=== PATIENT | female | born 1990 | race Hispanic/Latino ===

== ENCOUNTER 2016-08-27 12:28 | Outpatient (CLI) | payer SELFPAY ==
[2016-08-27 12:48] VITALS: BP 109/46
[2016-08-27] MEDS ORDERED: LACTATED RINGERS 500 ML IV ONE (14:49)
--- NOTE | 2016-08-28 09:17 | Ultrasound Report ---
OB ULTRASOUND GREATER THAN 14 WEEKS INDICATION: Viability, MAGALIE. COMPARISON: None similar. TECHNIQUE: Transabdominal grayscale ultrasound with Doppler interrogation. Gestation: [place] Position: Cephalic Amniotic Fluid: WNL (7-24 cm) NOY = 13.2 cm Placenta: Anterior Placental Grade: I Heart Rate: 151 BPM Cervical length: 3.2 cm (Normal > 3 cm) NEUROANATOMY VISUALIZED: Cisterna Magnum Cerebellum Lateral Ventricle ANATOMY VISUALIZED: Stomach Kidneys Bladder Diaphragm 4 Chamber Heart Heart 3 Vessel Cord SPINE VISUALIZED: Longitudinal Transverse The following are not demonstrated due to maternal body habitus or lie: Abd. Cord Insert, Choroid Plexus BPD: 7.67 cm = 30 w 5 d HC: 29.48 cm = 32 w 4 d AC: 29.3 to cm = 33 w 2 d FL: 6.36 cm = 32 w 6 d HC/AC Ratio: 1.01 Cephalic Index: 72.8 LMP uncertain Estimated Weight: 2068 grams US Gest. Age = 32 w 3 d EDC: 10/19/2016 CONCLUSION: Single, viable intrauterine gestation with ultrasound estimated age of 32 weeks and 3 days and EDC of 10/19/2016, currently in cephalic lie with details, as above. Thank you for the opportunity to participate in this patient's care.
== END 2016-08-27 15:03 | disposition home or self-care (01) ==
LOC: TRG 12:28
PROVIDERS: ATTEND Obstetrics & Gynecology
DX: O47.03 False labor before 37 completed weeks of gestation, third trimester (principal); O99.333 Smoking (tobacco) complicating pregnancy, third trimester; Z3A.32 32 weeks gestation of pregnancy
CPT/HCPCS: 59025; 76805

== ENCOUNTER 2016-09-20 05:52 | Outpatient (CLI) | payer SELFPAY ==
[2016-09-20] MEDS ORDERED: LACTATED RINGERS 1,000 ML ONE ×3 (06:28→21:08)
--- NOTE | 2016-09-20 08:14 | Ultrasound Report ---
ULTRASOUND BIOPHYSICAL PROFILE: History: well-being, vaginal spotting Technique: Transabdominal ultrasound with Doppler interrogation. 2 - breathing movements 2 - movements 2 - posture and tone 2 - Qualitative amniotic fluid volume 8 - TOTAL SCORE OF POSSIBLE 8 Heart Rate (bpm) 149
--- NOTE | 2016-09-20 08:15 | Ultrasound Report ---
ULTRASOUND OB LIMITED History: well being, vaginal spotting Technique: Transabdominal ultrasound with Doppler interrogation. Gestation: Single Position: Cephalic Amniotic Fluid: Normal NOY = 8.6 cm Placenta: Anterior Placental Grade: 1 No evidence for abruption. Heart Rate: 148 BPM Cervical length: Obscured (Normal > 3 cm)
[2016-09-20 08:17] LABS: Bacteria,Urine 1+ /HPF (Negative); Bilirubin,Urine NEG (Negative); Blood,Urine NEG (Negative); Ketones,Urine NEG (Negative); Leukocyte Esterase,Urine NEG (Negative); Nitrite,Urine NEG (Negative); Protein,Urine <15 mg/dL mg/dL (Negative); Urobilinogen,Urine < 2.0 mg/dL (<2.0)
[2016-09-20 08:38] LABS: WBC,Urine < 1.0 /HPF (0.0-6.0)
[2016-09-20 09:18] LABS: Urine Drugs of Abuse Note Disclamer
[2016-09-20 11:00] LABS: INR 0.92 (0.87-1.13)
[2016-09-20 11:01] LABS: Partial Thromboplastin Time 26.9 Sec. (24.2-36.6)
--- NOTE | 2016-09-20 11:24 | Ultrasound Report ---
OB ULTRASOUND History: No care. Technique: Transabdominal ultrasound with Doppler interrogation. Gestation: Single Position: Cephalic Amniotic Fluid: Normal NOY = 9.8 cm Placenta: Anterior Placental Grade: 2 Heart Rate: 161 BPM Cervical length: Obscured cm (Normal > 3 cm) NEUROANATOMY VISUALIZED: ANATOMY VISUALIZED: Stomach Kidneys Bladder Diaphragm SPINE VISUALIZED: Limited spine due to position The following are not demonstrated due to maternal body habitus or lie: Spine, 4 chamber heart, abdominal cord insertion, neuroanatomy, cervix, 3 vessel cord. BPD: 7.8 cm = 31 w 3 d HC: 30.6 cm = 34 w 0 d AC: 31.1 cm = 35 w 0 d FL: 6.9 cm = 35 w 2 d HC/AC Ratio: 0.98 Cephalic Index: 72.4 Estimated Weight: 2470 grams LMP: 01/13/16 Clinical age = 35 w 6 d EDC: 10/19/16 US Gest. Age = 34 w 0 d EDC: 11/01/16
[2016-09-20] MEDS ORDERED: LACTATED RINGERS 1,000 ML IV ONE (13:00)
[2016-09-20] MEDS ORDERED: TYLENOL PO PRN (18:24)
--- NOTE | 2016-09-20 18:24 | History and Physical Report ---
History of Present Illness Date of examination: 09/20/16 Date of admission: 09/20/16 Chief complaint: vaginal bleeding at 35 weeks History of present illness: This is a 26 yo G P at 35+ weeks without care. She stated that she moved furniture this am and noticed bleeding. Upon evaluation she passed a clot size of orange. She denies any contractions. some back pain. No other complaints. Patint without care secondary to insurance but is planning to become part of [employer] Past History Past Medical History: no pertinent history Past Surgical History: no surgical history Family/Genetic History: none Social history: no significant social history, single, smoking - Obstetrical History Expected Date of Delivery: 10/19/16 Actual Gestation: 35 Week(s) 6 Day(s) : 3 Para: 2 Hx # Term Pregnancies: 2 Number of Pregnancies: 0 Spontaneous Abortions: 0 Induced : 0 Number of Living Children: 2 Medications and Allergies Allergies Allergy/AdvReac Type Severity Reaction Status Date / Time codeine AdvReac Intermediate Itching Verified 05/10/13 02:46 Penicillins AdvReac Intermediate Itching Verified 05/10/13 02:46 Home Medications Medication Instructions Recorded Confirmed Last Taken Type Ferrous Sulfate [Feosol 325 MG tab] 325 mg PO BID #60 tablet 05/11/13 Unknown Rx Ibuprofen [Motrin 600 MG tab] 800 mg PO Q8H PRN #30 tablet 05/11/13 Unknown Rx Vit-Fe Fumar-FA [ 1 each PO QDAY #30 tablet 05/11/13 Unknown Rx Vitamin] Ibuprofen [Motrin 600 MG tab] 600 mg PO Q6H #30 tablet 11/19/15 Unknown Rx Vit-Fe Fumar-FA [ 1 each PO QDAY #30 tablet 11/19/15 Unknown Rx Vitamin] ALBUTEROL Inhaler 09/20/16 08/21/16 History Adderall 09/20/16 09/17/16 History NexIUM 09/20/16 09/19/16 History Tums 09/20/16 Unknown History Tylenol Pm Ex-Strength Caplet 09/20/16 09/19/16 18:30 History Review of Systems All systems: negative Genitourinary: vaginal bleeding - Vital Signs Vital signs: Vital Signs Pulse Pulse Ox 102 H 99 09/20/16 06:04 09/20/16 06:04 Temp Pulse Resp BP Pulse Ox 97.9 F 100 H 22 100/72 97 09/20/16 16:15 09/20/16 16:15 09/20/16 16:15 09/20/16 16:15 09/20/16 06:25 - Physical Exam Breasts: Positive: deferred Cardiovascular: Regular rate, Normal S1 Lungs: Positive: Clear to auscultation, Normal air movement Abdomen: Positive: normal appearance, soft, normal bowel sounds. Negative: distention, tenderness Vagina: Positive: normal moisture Cervix: Negative: lesion Uterus: Positive: normal size Extremities: Positive: normal Deep Tendon Reflex Grade: Normal +2 - Obstetrical FHR: category 1 Uterine Contraction Monitor Mode: External Results Abnormal lab results 09/20/16 Range/Units 06:15 Ur Specific [place] 1.002 L (1.003-1.030) All other labs normal. Ultrasound: report reviewed Assessment and Plan A IUP 35+ weeks Vaginal bleeding P continuous monitoring pad count labs cbc, type and screen, drug screen MFM consult Bed rest with bathroom privileges Close monitor US
--- NOTE | 2016-09-20 19:06 | Consultation ---
History of Present Illness Consult date: 09/20/16 Requesting physician: TY MUNOZ Reason for consult: other (vaginal bleeding) History of present illness: HISTORY OF PRESENT ILLNESS: 26 y/o at 35 weeks gestation based on an MAGALIE of 10/19/13 who presented with vaginal bleeding and low abdominal pain following trauma to the abdomen (while moving). Patient has had no previous care. Her most recent NOY was 9.8 cm. She has no ongoing bleeding. She DENIES ongoing contractions. OB History * 2014: at term. BW: 5 pounds 4 oz. * 2016: at term. BW: 7 pounds 7 oz. * See H&P RECENT ULTRASONOGRAPHY: * See results in patients chart * assessment: Category 1 Tracing. * EFW: 2470 FHR: 161AFI: 9.8 cm * BPP: 10/24 Past History Past Medical History: no pertinent history Past Surgical History: no surgical history Family/Genetic History: none - Obstetrical History : 3 Medications and Allergies Allergies Allergy/AdvReac Type Severity Reaction Status Date / Time codeine AdvReac Intermediate Itching Verified 05/10/13 02:46 Penicillins AdvReac Intermediate Itching Verified 05/10/13 02:46 Home Medications Medication Instructions Recorded Confirmed Last Taken Type Ferrous Sulfate [Feosol 325 MG tab] 325 mg PO BID #60 tablet 05/11/13 Unknown Rx Ibuprofen [Motrin 600 MG tab] 800 mg PO Q8H PRN #30 tablet 05/11/13 Unknown Rx Vit-Fe Fumar-FA [ 1 each PO QDAY #30 tablet 05/11/13 Unknown Rx Vitamin] Ibuprofen [Motrin 600 MG tab] 600 mg PO Q6H #30 tablet 11/19/15 Unknown Rx Vit-Fe Fumar-FA [ 1 each PO QDAY #30 tablet 11/19/15 Unknown Rx Vitamin] ALBUTEROL Inhaler 09/20/16 08/21/16 History Adderall 09/20/16 09/17/16 History NexIUM 09/20/16 09/19/16 History Tums 09/20/16 Unknown History Tylenol Pm Ex-Strength Caplet 09/20/16 09/19/16 18:30 History Active Meds: Active Medications Acetaminophen (Tylenol) 1,000 mg PO Q6H PRN PRN Reason: Pain, Mild (1-3) Last Admin: 09/20/16 18:39 Dose: 1,000 mg - Vital Signs Vital signs: Vital Signs Pulse Pulse Ox 102 H 99 09/20/16 06:04 09/20/16 06:04 Temp Pulse Resp BP Pulse Ox 97.9 F 100 H 22 100/72 97 09/20/16 16:15 09/20/16 16:15 09/20/16 16:15 09/20/16 16:15 09/20/16 06:25 Results Abnormal lab results 09/20/16 Range/Units 06:15 Ur Specific [place] 1.002 L (1.003-1.030) All other labs normal. Assessment and Plan ADMISSION LAB TESTS: * See Details in patients chart ASSESSMENT * IUP at 35 weeks gestation. * Transient vaginal bleeding. * No care. * Consider discharge when stable. SUGGESTED MANAGEMENT PLAN * Continued admission * At this gestational age we would NOT recommend steroids * Obtain a addiction social worker consult due to no care. * Deliver for indications. * Consider discharge home if stable in 24 hours. * Follow-up with [facility] next week. * [facility] to follow Thank you for allowing us to participate in the care of this patient. We look forward to the opportunity to assist in her continued management. If you have any questions, we may be reached at [phone].
[2016-09-20 20:05] LABS: Basophils % (Auto) 0.4 % (0.0-1.8); Eosinophils % (Auto) 0.6 % (0.0-4.3); Hematocrit 32.8 % (30.3-42.9); Hemoglobin 10.6 gm/dl (10.1-14.3); Mean Corpuscular HGB Conc 32 % (30-34); Mean Corpuscular Volume 80 fl (79-97); Platelet Count 393 K/mm3 (140-440); Red Blood Count 4.13 M/mm3 (3.65-5.03); Red Cell Distribution Width 17.5 % (13.2-15.2); White Blood Count 10.2 K/mm3 (4.5-11.0)
[2016-09-20 20:15] LABS: Mean Corpuscular Hemoglobin 26 pg (28-32)
[2016-09-20 20:45] VITALS: BP 0/0
[2016-09-20] MEDS ORDERED: AMBIEN PO PRN (22:22)
== END 2016-09-20 23:00 | disposition left against medical advice (07) ==
LOC: TRG 05:52 → LD 09:34 → TRG 23:00
PROVIDERS: ATTEND Obstetrics & Gynecology
DX: O99.333 Smoking (tobacco) complicating pregnancy, third trimester (principal); O26.853 Spotting complicating pregnancy, third trimester; O26.893 Other specified pregnancy related conditions, third trimester; R10.9 Unspecified abdominal pain; Z3A.35 35 weeks gestation of pregnancy
CPT/HCPCS: 36415; 76805; 76815; 76819; 80307; 81001; 85025; 85610; 85730; 86850; 86900; 86901; J7120

== ENCOUNTER 2016-09-22 00:43 | Inpatient (IN) | payer SELFPAY ==
[2016-09-22] MEDS ORDERED: LACTATED RINGERS 500 ML IV ONE (01:10)
--- NOTE | 2016-09-22 01:44 | History and Physical Report ---
History of Present Illness Date of examination: 09/22/16 Date of admission: 09/22/16 01:25 Chief complaint: Painful contractions now fully dilated Vaginal bleeding History of present illness: 26 y/o at 36+1 weeks gestation based on an MAGALIE of 10/19/16 who presented this morning with vaginal bleeding and low abdominal pain following trauma to the abdomen (while moving). Patient has had no previous care. Her most recent NOY was 9.8 cm. She was seen by MFM on 09/20/16 and then left AGAINST MEDICAL ADVICE She returns to triage similar complaints now 9 cm with bulging membranes OB History * 2013: at term. BW: 5 pounds 4 oz. * 2015: at term. BW: 7 pounds 7 oz. * See H&P RECENT ULTRASONOGRAPHY: * See results in patients chart * assessment: Category 1 Tracing. * EFW: 2470 FHR: 161AFI: 9.8 cm * BPP: 10/24 Past History Past Medical History: no pertinent history Past Surgical History: no surgical history Social history: full code, other (history of methamphetamine abuse). denies: smoking, alcohol abuse, prescription drug abuse, IV drug use - Obstetrical History Expected Date of Delivery: 10/19/16 Actual Gestation: 36 Week(s) 1 Day(s) : 3 Para: 2 Medications and Allergies Allergies Allergy/AdvReac Type Severity Reaction Status Date / Time codeine AdvReac Intermediate Itching Verified 05/10/13 02:46 Penicillins AdvReac Intermediate Itching Verified 05/10/13 02:46 Home Medications Medication Instructions Recorded Confirmed Last Taken Type Ferrous Sulfate [Feosol 325 MG tab] 325 mg PO BID #60 tablet 05/11/13 Unknown Rx Ibuprofen [Motrin 600 MG tab] 800 mg PO Q8H PRN #30 tablet 05/11/13 Unknown Rx Vit-Fe Fumar-FA [ 1 each PO QDAY #30 tablet 05/11/13 Unknown Rx Vitamin] Ibuprofen [Motrin 600 MG tab] 600 mg PO Q6H #30 tablet 11/19/15 Unknown Rx Vit-Fe Fumar-FA [ 1 each PO QDAY #30 tablet 11/19/15 Unknown Rx Vitamin] ALBUTEROL Inhaler 09/20/16 08/21/16 History Adderall 09/20/16 09/17/16 History NexIUM 09/20/16 09/19/16 History Tums 09/20/16 Unknown History Tylenol Pm Ex-Strength Caplet 09/20/16 09/19/16 18:30 History Ibuprofen [Motrin 600 MG tab] 600 mg PO Q8H PRN #30 tablet 09/22/16 Unknown Rx Multivitamin with Iron 1 each PO DAILY #30 tablet 09/22/16 Unknown Rx [Multivitamins with Iron] Review of Systems Constitutional: no fever, no chills Cardiovascular: no chest pain, no orthopnea, no palpitations, no lightheadedness , no shortness of breath, no high blood pressure, no decreased exercise tolerance Respiratory: no hemoptysis, no shortness of breath, no dyspnea on exertion Gastrointestinal: abdominal pain (Painful contractions), no nausea, no vomiting Genitourinary: vaginal bleeding, no vaginal discharge, no leakage of fluid - Vital Signs Vital signs: Vital Signs Pulse BP 88 113/77 09/22/16 01:24 09/22/16 01:24 Temp Pulse Resp BP Pulse Ox 87 125/87 97 09/22/16 01:33 09/22/16 01:32 09/22/16 01:33 - Physical Exam Abdomen: Positive: normal appearance, soft. Negative: distention, tenderness, guarding, rigidity Genitourinary (Female): Positive: normal external genitalia Uterus: Positive: enlarged (EFW ~ 3500) Adnexa: both: normal Extremities: Positive: normal - Obstetrical FHR: category 1 Cervical Dilatation: 9.5 Results All other labs normal. Assessment and Plan A: 26-year-old at 36+1 wks in active labour with bloody show now improved -Cat 1 tracing -9-10 cm dilated -Methamphetamine Pos P: -Admit -Obtain labs including STD screening -Expectant management -Anticipate normal vaginal delivery - Patient Problems (1) 36 weeks gestation of Current Visit: Yes Status: Acute (2) Active labor Onset Date: 05/10/13 Current Visit: No Status: Acute Qualifiers: Fetus number: F (3) Methamphetamine abuse Current Visit: Yes Status: Acute (4) No care in current Current Visit: Yes Status: Acute Qualifiers: Trimester: T
[2016-09-22] MEDS ORDERED: ZOFRAN IV PRN ×2 (01:49→02:25)
[2016-09-22] MEDS ORDERED: MINERAL OIL PO PRN (01:49)
[2016-09-22] MEDS ORDERED: BRETHINE SUB-Q PRN (01:49)
[2016-09-22] MEDS ORDERED: XYLOCAINE 2% INFILTRATI ONE (01:49)
[2016-09-22] MEDS ORDERED: BRETHINE IVP PRN (01:49)
[2016-09-22] MEDS ORDERED: ePHEDrine SULFATE IV PRN (01:49)
[2016-09-22] MEDS ORDERED: CLEOCIN 900 MG/50 mL 900 MG/50 ML BAG IV SCH (02:00)
[2016-09-22] MEDS ORDERED: LACTATED RINGERS 1,000 ML IV SCH (02:00)
[2016-09-22] MEDS ORDERED: PITOCin/NS 30 UNIT/500ML 30 UNITS/500 ML BAG IV SCH (02:00)
[2016-09-22] MEDS ORDERED: PITOCin/NS 20 UNIT/1000ML DRIP 20 UNITS/1,000 ML BAG IV SCH ×2 (02:00→03:00)
[2016-09-22] MEDS ORDERED: METHERGINE IM ONE (02:16)
--- NOTE | 2016-09-22 02:23 | Procedure Note ---
OB Delivery Note - Delivery Date of Delivery: 09/22/16 Surgeon: AMY BLACKMAN Estimated blood loss: 200cc - Vaginal Delivery presentation: vertex Delivery position: OA Intrapartum events: no care, precipitous labor- <3hr Delivery induction: none Delivery monitor: external FHT, external uterine Route of delivery: Delivery placenta: spontaneous Delivery cord: nuchal cord (Nuchal x 2 loose) Episiotomy: none Delivery laceration: none Anesthesia: none - Infant A at 1 minute: 8 at 5 minutes: 9 Gender: Female (delivery at 2:12 AM, weight 6 pounds or 2714 g)
[2016-09-22 02:25] LABS: Urine Drugs of Abuse Note Disclamer
[2016-09-22] MEDS ORDERED: PHENERGAN PO PRN (02:25)
[2016-09-22] MEDS ORDERED: BENADRYL PO PRN (02:25)
[2016-09-22] MEDS ORDERED: LANSINOH TP PRN (02:25)
[2016-09-22] MEDS ORDERED: TUCKS PAD TP PRN (02:25)
[2016-09-22] MEDS ORDERED: PHENERGAN PR PRN (02:25)
[2016-09-22] MEDS ORDERED: ANUCORT-HC PR PRN (02:25)
[2016-09-22] MEDS ORDERED: DULCOLAX PR PRN (02:25)
[2016-09-22] MEDS ORDERED: TYLENOL PO PRN (02:25)
[2016-09-22] MEDS ORDERED: MILK OF MAGNESIA PO PRN (02:25)
[2016-09-22 02:34] LABS: Hematocrit 33.2 % (30.3-42.9); Hemoglobin 10.6 gm/dl (10.1-14.3); Mean Corpuscular HGB Conc 32 % (30-34); Mean Corpuscular Volume 78 fl (79-97); Platelet Count 454 K/mm3 (140-440); Red Blood Count 4.26 M/mm3 (3.65-5.03); Red Cell Distribution Width 17.5 % (13.2-15.2)
[2016-09-22 02:40] LABS: Mean Corpuscular Hemoglobin 25 pg (28-32); White Blood Count 20.4 K/mm3 (4.5-11.0)
[2016-09-22] MEDS ORDERED: SODIUM CHLORIDE FLUSH SYRINGE 10 ML IV PRN (03:00)
[2016-09-22] MEDS: MOTRIN PO SCH ×4 (03:09→23:29)
[2016-09-22 03:53] LABS: HIV-1 Antigen p24 Non React (Non React); HIVR-1/2 Ab Non React (Non React)
[2016-09-22 03:56] LABS: Blastocytes % (Manual) 0 %; Diff Status Complete; Eosinophils % (Manual) 0 % (0.0-4.3); Hypochromasia 1+; Platelet Estimate Appears Increased
[2016-09-22 03:56] LABS: Alanine Aminotransferase 9 units/L (7-56); Albumin 3.2 g/dL (3.9-5); Alkaline Phosphatase 164 units/L (35-129); Anion Gap 22 mmol/L; Blood Urea Nitrogen 5 mg/dL (7-17); Calcium 8.9 mg/dL (8.4-10.2); Carbon Dioxide 21 mmol/L (22-30); Chloride 92.8 mmol/L (98-107); Glucose 68 mg/dL (65-100); Potassium 4.1 mmol/L (3.6-5.0); Sodium 132 mmol/L (137-145); Total Protein 6.4 g/dL (6.3-8.2)
[2016-09-22] MEDS: NORCO 5/325 PO PRN ×2 (09:42→20:51)
[2016-09-22] MEDS: FEOSOL PO SCH ×2 (09:42→21:01)
[2016-09-22] MEDS: PRENATAL VITAMIN PO SCH (09:42)
[2016-09-22 14:10] LABS: Hematocrit 28.3 % (30.3-42.9); Hemoglobin 9.2 gm/dl (10.1-14.3)
[2016-09-22] MEDS: COLACE PO SCH (21:01)
[2016-09-23] MEDS: SENOKOT S PO SCH ×2 (00:07→21:57)
[2016-09-23] MEDS ORDERED: M-M-R II VACCINE SUB-Q ONE (02:25)
[2016-09-23] MEDS: MOTRIN PO SCH ×4 (05:14→23:38)
[2016-09-23] MEDS ORDERED: BOOSTRIX IM ONE (06:00)
--- NOTE | 2016-09-23 08:44 | Progress Note ---
Assessment and Plan PPD# 1 s/p -Doing well P: Continue routine PP care D/C in 24-48 hrs - Patient Problems (1) 36 weeks gestation of Current Visit: Yes Status: Acute (2) Active labor Onset Date: 05/10/13 Current Visit: No Status: Acute Qualifiers: Fetus number: F (3) Methamphetamine abuse Current Visit: Yes Status: Acute (4) No care in current Current Visit: Yes Status: Acute Qualifiers: Trimester: T Subjective - Subjective Date of service: 09/23/16 Principal diagnosis: PPD# 1 Interval history: Patient seen and examined, stable and doing well with no issues Patient reports: appetite normal, voiding normally, pain well controlled, flatus , ambulating normally, no dizzy ambulation, no nauseated [place]: doing well Objective - Vital Signs Latest vital signs: Vital Signs Temp Pulse Resp BP 09/23/16 01:00 98.2 F 70 20 102/55 09/22/16 16:00 96.9 F L 72 18 103/64 09/22/16 13:12 98.2 F 70 18 102/54 09/22/16 09:42 20 Intake and Output 09/22/16 09/23/16 09/23/16 22:59 06:59 14:59 Intake Total 480 480 Balance 480 480 Intake: Oral 480 480 Other: Total, Intake Amount 240 240 # Voids Void 1 1 - Exam Abdomen: Present: normal appearance, soft. Absent: distention, tenderness, guarding, rigidity Uterus: Present: fundal height below umbilicus. Absent: tenderness Extremities: Present: normal - Labs Labs: Abnormal lab results 09/22/16 Range/Units 13:46 Hgb 9.2 L (10.1-14.3) gm/dl Hct 28.3 L (30.3-42.9) %
--- NOTE | 2016-09-23 08:47 | Discharge Summary ---
Providers - Providers Date of Admission: 09/22/16 01:25 Date of discharge: 09/24/16 Attending physician: AMY BLACKMAN 09/22/16 07:15 Consult to Case Management [CONS] Routine Services Needed at Discharge: Change Attendant Notified:: shani Phone number called:: [phone] Was contact made?: Yes If yes, spoke with:: mark Time called:: 07:16 Primary care physician: AMY BLACKMAN Hospitalization Reason for admission: active labor, labor Delivery: Episiotomy: none Laceration: none Other procedures: none complications: none Discharge diagnosis: IUP at term delivered, other (Methamphetamine abuse) baby: female Hospital course: Uncomplicated course Condition at discharge: Good Disposition: DC-01 TO HOME OR SELFCARE - Discharge Diagnoses (1) Status post normal vaginal delivery Status: Acute (2) 36 weeks gestation of Status: Acute (3) Active labor Status: Acute Qualifiers: Fetus number: F (4) Methamphetamine abuse Status: Acute (5) No care in current Status: Acute Qualifiers: Trimester: T Plan - Discharge Medications Prescriptions: Ibuprofen [Motrin 600 MG tab] 600 mg PO Q8H PRN #30 tablet PRN Reason: Pain Multivitamin with Iron [Multivitamins with Iron] 1 each PO DAILY #30 tablet - Provider Discharge Summary Activity: no sex for 6 weeks, no heavy lifting 4 weeks, no strenuous exercise Diet: routine Additional instructions: [] Smoking cessation referral if applicable(refer to patient education folder for contact #) [] Refer to [facility]'s [facility] Booklet Call your doctor immediately for: * Fever > 100.5 * Heavy vaginal bleeding ( >1 pad per hour) * Severe persistent headache * Shortness of breath * Reddened, hot, painful area to leg or breast * Drainage or odor from incision. * Keep incision clean and dry at all times and follow doctor's instructions regarding bathing/showering - Follow up plan Follow up: AMY BLACKMAN MD [Primary Care Provider] - 6 Weeks
[2016-09-23] MEDS: COLACE PO SCH ×2 (10:09→22:01)
[2016-09-23] MEDS: FEOSOL PO SCH ×2 (10:09→22:01)
[2016-09-23] MEDS: PRENATAL VITAMIN PO SCH (10:09)
[2016-09-23] MEDS ORDERED: PNEUMOVAX 23 IM ONE (12:00)
[2016-09-24] MEDS: MOTRIN PO SCH ×2 (06:10→11:42)
[2016-09-24] MEDS: FEOSOL PO SCH (10:15)
[2016-09-24] MEDS: PRENATAL VITAMIN PO SCH (10:16)
[2016-09-24] MEDS: COLACE PO SCH (10:16)
[2016-09-24 13:12] VITALS: BP 128/74
== END 2016-09-24 13:40 | disposition home or self-care (01) | DRG 775 ==
LOC: TRG 00:43 → LD 01:25 → OB 04:06
PROVIDERS: ADMIT Obstetrics & Gynecology Gynecology; ATTEND Obstetrics & Gynecology Gynecology
PROC: 10E0XZZ Delivery of Products of Conception, External Approach (ICD-10-PCS; principal; 2016-09-22)
PROC: 3E0234Z Introduction of Serum, Toxoid and Vaccine into Muscle, Percutaneous Approach (ICD-10-PCS; 2016-09-22)
DX: O62.3 Precipitate labor (principal); O60.14X0 Preterm labor third trimester with preterm delivery third trimester, not applicable or unspecified; O69.81X0 Labor and delivery complicated by cord around neck, without compression, not applicable or unspecified; F19.10 Other psychoactive substance abuse, uncomplicated; O09.33 Supervision of pregnancy with insufficient antenatal care, third trimester; Z3A.36 36 weeks gestation of pregnancy; Z37.0 Single live birth; Z88.0 Allergy status to penicillin; Z88.8 Allergy status to other drugs, medicaments and biological substances; Z23 Encounter for immunization
CPT/HCPCS: 36415; 80053; 80307; 85007; 85014; 85018; 85025; 86592; 86706; 86762; 86803; 86850; 86900; 86901; 87806; 90471; 90715; 90732; J2210; J2590; J7120

== ENCOUNTER 2019-03-10 11:07 | Inpatient (IN) | payer OTHER ==
[2019-03-10] MEDS ORDERED: SODIUM CHLORIDE 0.9% 1000 ML IV SOLN IV ONE (11:33)
[2019-03-10] MEDS ORDERED: ALBUTEROL 2.5 MG/3 ML NEBU IH ONE ×2 (11:39→14:13)
[2019-03-10] MEDS ORDERED: IPRATROPIUM 0.02% NEBU 2.5 ML IH ONE ×2 (11:39→14:13)
--- NOTE | 2019-03-10 11:42 | Event Note ---
ED Screening Note Date of service: 03/10/19 Time: 11:38 ED Screening Note: C/o cough and congestion x 3 weeks and shortness of breath x 1 week now worsening today states black mcgee sputum fever of 101 at home +asthma +wheezing, rales and tachypnea on exam This initial assessment/diagnostic orders/clinical plan/treatment(s) is/are subject to change based on patients health status, clinical progression and re- assessment by fellow clinical providers in the ED. Further treatment and workup at subsequent clinical providers discretion. Patient/guardian urged not to elope from the ED as their condition may be serious if not clinically assessed and managed. Initial orders include: Sepsis protocol CXR Neb tx Now at 96% with 4L nasal cannula
[2019-03-10 12:07] LABS: Basophils # (Auto) 0.1 K/mm3 (0.0-0.1); Basophils % (Auto) 0.5 % (0.0-1.8); Eosinophils % (Auto) 5.1 % (0.0-4.3); Hematocrit 38.6 % (30.3-42.9); Hemoglobin 13.8 gm/dl (10.1-14.3); Lymphocytes # (Auto) 2.2 K/mm3 (1.2-5.4); Lymphocytes % (Auto) 11.2 % (13.4-35.0); Mean Corpuscular HGB Conc 36 % (30-34); Mean Corpuscular Volume 87 fl (79-97); Monocytes # (Auto) 0.7 K/mm3 (0.0-0.8); Monocytes % (Auto) 3.6 % (0.0-7.3); Platelet Count 564 K/mm3 (140-440); Red Blood Count 4.43 M/mm3 (3.65-5.03); Red Cell Distribution Width 13.4 % (13.2-15.2)
[2019-03-10 12:49] LABS: Bilirubin,Urine NEG (Negative); Blood,Urine NEG (Negative); Color,Urine Yellow (Yellow); Protein,Urine <15 mg/dL mg/dL (Negative); Urobilinogen,Urine < 2.0 mg/dL (<2.0)
--- NOTE | 2019-03-10 13:20 | XRay Report ---
CHEST 2 VIEWS INDICATION / CLINICAL INFORMATION: O2 at 90%, SOB UPT. COMPARISON: None available. FINDINGS: SUPPORT DEVICES: None. HEART / MEDIASTINUM: No significant abnormality. LUNGS / PLEURA: There is patchy airspace opacity noted in the left lower chest which could represent an evolving pneumonia or atelectasis. The right lung is clear. No pneumothorax is seen. . ADDITIONAL FINDINGS: No significant additional findings. Signer Name: Raza Holder MD Signed: 03/10/2019 1:16 PM Workstation Name: [id number]
[2019-03-10 13:28] LABS: Alanine Aminotransferase 13 units/L (7-56); Albumin 4.2 g/dL (3.9-5); BUN/Creatinine Ratio 10; Blood Urea Nitrogen 5 mg/dL (7-17); Calcium 9.7 mg/dL (8.4-10.2); Hemolysis Index 3
[2019-03-10] MEDS ORDERED: methylPREDNISolone Sod Succinate 125 MG/2 ML INJ ONE (13:58)
[2019-03-10] MEDS ORDERED: methylPREDNISolone Sod Succinate 125 MG/2 ML INJ IV ONE (14:04)
--- NOTE | 2019-03-10 14:13 | Emergency Department Report ---
- General Chief Complaint: Upper Respiratory Infection Stated Complaint: CHEST/BACK/RIB PAIN/SOB Time Seen by Provider: 03/10/19 11:32 Source: patient Mode of arrival: Ambulatory Limitations: No Limitations - History of Present Illness Initial Comments: 28-year-old female, history of asthma, presents to ED with cough x 3 weeks. Patient reports fever, shortness of breath, pain with cough. Patient states she has been taking TheraFlu at home with no relief. Patient states the chest wall pain started one week ago. MD Complaint: fever, cough -: week(s) (3) Severity: severe Quality: sharp Consistency: constant Improves With: nothing Worsens With: deep breaths, other (cough) Associated Symptoms: fever, chills, cough, chest pain, shortness of breath Treatments Prior to Arrival: "cold medicine" - Related Data Home Medications Medication Instructions Recorded Confirmed Last Taken Tylenol Pm Ex-Strength Caplet 1 tab PO DAILY 09/20/16 03/10/19 03/09/19 Albuterol Sulfate [Proair 2 puff IH Q4HR PRN 03/10/19 03/10/19 03/10/19 Respiclick] Esomeprazole Magnesium [NexIUM] 40 mg PO QDAY 03/10/19 03/10/19 03/09/19 Sertraline [Zoloft] 50 mg PO QDAY 03/10/19 03/10/19 Unknown traZODone [Desyrel] 100 mg PO QHS 03/10/19 03/10/19 1 Week Ago ~03/03/19 Allergies Allergy/AdvReac Type Severity Reaction Status Date / Time codeine AdvReac Intermediate Itching Verified 05/10/13 02:46 Penicillins AdvReac Intermediate Itching Verified 05/10/13 02:46 ED Review of Systems ROS: Stated complaint: CHEST/BACK/RIB PAIN/SOB Other details as noted in HPI Comment: All other systems reviewed and negative Constitutional: fever Respiratory: cough, shortness of breath Cardiovascular: chest pain ED Past Medical Hx - Past Medical History Previous Medical History?: Yes Hx Hypertension: No Hx Congestive Heart Failure: No Hx Diabetes: No Hx Deep Vein Thrombosis: No Hx Renal Disease: No Hx Sickle Cell Disease: No Hx Seizures: No Hx Asthma: Yes Hx COPD: No Hx HIV: No - Surgical History Past Surgical History?: No - Social History Smoking Status: Current Every Day Smoker Substance Use Type: None - Medications Home Medications: Home Medications Medication Instructions Recorded Confirmed Last Taken Type Tylenol Pm Ex-Strength Caplet 1 tab PO DAILY 09/20/16 03/10/19 03/09/19 History Albuterol Sulfate [Proair 2 puff IH Q4HR PRN 03/10/19 03/10/19 03/10/19 History Respiclick] Esomeprazole Magnesium [NexIUM] 40 mg PO QDAY 03/10/19 03/10/19 03/09/19 History Sertraline [Zoloft] 50 mg PO QDAY 03/10/19 03/10/19 Unknown History traZODone [Desyrel] 100 mg PO QHS 03/10/19 03/10/19 1 Week Ago History ~03/03/19 ED Physical Exam - General Limitations: No Limitations General appearance: alert - Head Head exam: Present: atraumatic, normocephalic - Eye Eye exam: Present: normal appearance - ENT ENT exam: Present: mucous membranes moist - Neck Neck exam: Present: normal inspection - Respiratory Respiratory exam: Present: respiratory distress (mild), wheezes, decreased breath sounds, other (tachypneic) - Cardiovascular Cardiovascular Exam: Present: normal rhythm, tachycardia - GI/Abdominal GI/Abdominal exam: Present: soft. Absent: distended, tenderness - Extremities Exam Extremities exam: Present: normal inspection. Absent: pedal edema, calf tenderness - Neurological Exam Neurological exam: Present: alert, oriented X3 - Psychiatric Psychiatric exam: Present: normal affect, normal mood - Skin Skin exam: Present: warm, dry, intact, normal color ED Course Vital Signs 03/10/19 03/10/19 03/10/19 11:29 11:37 13:46 Temperature 99.4 F Pulse Rate 116 H 105 H Pulse Rate [ Throughout] Respiratory 24 25 H 24 Rate Respiratory Rate [ Throughout] Blood Pressure 150/89 Blood Pressure [Left] O2 Sat by Pulse 89 95 Oximetry 03/10/19 03/10/19 03/10/19 13:51 14:00 14:15 Temperature Pulse Rate 93 H 99 H 99 H Pulse Rate [ Throughout] Respiratory 32 H 41 H 32 H Rate Respiratory Rate [ Throughout] Blood Pressure 154/94 144/95 Blood Pressure 139/92 [Left] O2 Sat by Pulse 95 91 95 Oximetry 03/10/19 03/10/19 03/10/19 14:30 14:46 14:47 Temperature Pulse Rate 109 H 101 H Pulse Rate [ 94 H Throughout] Respiratory 40 H 35 H Rate Respiratory 19 Rate [ Throughout] Blood Pressure 141/92 141/92 Blood Pressure [Left] O2 Sat by Pulse 95 93 Oximetry 03/10/19 03/10/19 03/10/19 15:00 15:16 15:30 Temperature Pulse Rate 102 H 109 H 107 H Pulse Rate [ Throughout] Respiratory 45 H 27 H 24 Rate Respiratory Rate [ Throughout] Blood Pressure 141/92 141/92 141/92 Blood Pressure [Left] O2 Sat by Pulse 95 94 91 Oximetry 03/10/19 03/10/19 03/10/19 15:46 17:10 17:16 Temperature Pulse Rate 113 H Pulse Rate [ Throughout] Respiratory 28 H 8 L Rate Respiratory Rate [ Throughout] Blood Pressure 141/92 141/92 141/92 Blood Pressure [Left] O2 Sat by Pulse 91 93 94 Oximetry 03/10/19 03/10/19 03/10/19 17:30 17:46 18:00 Temperature 99.3 F Pulse Rate 112 H 109 H Pulse Rate [ Throughout] Respiratory 17 38 H Rate Respiratory Rate [ Throughout] Blood Pressure 141/92 141/92 141/92 Blood Pressure [Left] O2 Sat by Pulse 96 93 95 Oximetry 03/10/19 03/10/19 03/10/19 18:16 18:30 19:30 Temperature 98.6 F Pulse Rate 118 H 111 H Pulse Rate [ Throughout] Respiratory 36 H 37 H 19 Rate Respiratory Rate [ Throughout] Blood Pressure 141/92 141/92 Blood Pressure 143/74 [Left] O2 Sat by Pulse 95 94 95 Oximetry ED Medical Decision Making - Lab Data Result diagrams: 03/10/19 11:40 03/10/19 11:40 - Radiology Data Radiology results: report reviewed, image reviewed - Medical Decision Making 28-year-old female with URI symptoms 3 weeks. Patient hypoxic with initial O2 sats of 89% on room air. Chest x-ray shows pneumonia. WBCs are 19, with slightly elevated lactic acid. Blood cultures drawn, patient given Levaquin and IV fluids. Albuterol nebulizer treatment also given. The patient will be admitted to hospitalist, Dr. Gee. - Differential Diagnosis flu, pneumonia, asthma Critical Care Time: Yes Critical care time in (mins) excluding proc time.: 35 Critical care attestation.: If time is entered above; I have spent that time in minutes in the direct care of this critically ill patient, excluding procedure time. Critical Care Time: 35 minutes ED Disposition Clinical Impression: Pneumonia, Hypoxia, Sepsis Disposition: OP ADMIT IP TO THIS HOSP Is pt being admited?: Yes Condition: Stable Time of Disposition: 14:18
[2019-03-10] MEDS ORDERED: SODIUM CHLORIDE 0.9% 1000 ML 1,000 ML ONE (14:30)
[2019-03-10] MEDS ORDERED: ALBUTEROL 2.5 MG/3 ML NEBU IH PRN (22:10)
[2019-03-10] MEDS: IPRATROPIUM/ALBUTEROL SULFATE 3 ML AMPUL.NEB IH SCH (22:27)
[2019-03-10] MEDS ORDERED: METOCLOPRAMIDE 10 MG/2 ML INJ IV PRN (22:54)
[2019-03-10] MEDS ORDERED: HYDROmorphone 1 MG/1 ML INJ IV PRN (22:54)
[2019-03-10] MEDS ORDERED: ONDANSETRON 4 MG/2 ML INJ IV PRN (22:54)
[2019-03-10] MEDS ORDERED: ACETAMINOPHEN 325 MG TAB PO PRN (22:54)
[2019-03-10] MEDS ORDERED: IPRATROPIUM/ALBUTEROL SULFATE 3 ML AMPUL.NEB IH PRN (23:15)
[2019-03-10] MEDS: FAMOTIDINE 20 MG/2 ML INJ IV SCH (23:31)
[2019-03-11] MEDS: HEPARIN 5,000 UNIT/1 ML VIAL SUB-Q SCH ×3 (00:14→21:13)
[2019-03-11] MEDS ORDERED: ALBUTEROL 2.5 MG/3 ML NEBU IH PRN (01:15)
[2019-03-11] MEDS: oxyCODONE /ACETAMINOPHEN 5-325MG TAB PO PRN ×3 (06:42→21:10)
[2019-03-11] MEDS: IPRATROPIUM/ALBUTEROL SULFATE 3 ML AMPUL.NEB IH SCH ×3 (07:59→20:53)
[2019-03-11] MEDS: cefTRIAXone/NS 2 GM/100 ML 2 GM/100 ML BAG IV SCH (10:29)
[2019-03-11] MEDS: FAMOTIDINE 20 MG/2 ML INJ IV SCH (10:30)
--- NOTE | 2019-03-11 11:06 | Event Note ---
Date: 03/10/19 See history and physical in the reports Community-acquired pneumonia Obstructive airway disease
--- NOTE | 2019-03-11 11:22 | Progress Note ---
Assessment and Plan - Patient Problems (1) SIRS (systemic inflammatory response syndrome) Current Visit: Yes Status: Acute Plan to address problem: Clinical picture consistent with systemic inflammatory response syndrome Patient has high white count tach, tachypnea, high lactic acid and fever. (2) Community acquired pneumonia Current Visit: Yes Status: Acute Qualifiers: Laterality: left Lung location: lower lobe of lung Qualified Code(s): J18.9 - Pneumonia, unspecified organism Plan to address problem: Patient started on IV antibiotics Rocephin and Zithromax Bronchodilators via nebulizer machine PRN Low-dose steroids (3) Asthma exacerbation Current Visit: Yes Status: Acute Qualifiers: Asthma severity: moderate Plan to address problem: IV antibiotics, IV Solu-Medrol and nebulizer treatments (4) Nicotine dependence Current Visit: Yes Status: Chronic Qualifiers: Nicotine product type: cigarettes Plan to address problem: Patient counseled about stopping smoking NicoDerm patch initiated (5) DVT prophylaxis Current Visit: Yes Status: Acute Plan to address problem: Heparin 5000 every 12 Subjective Date of service: 03/11/19 Objective - Constitutional Vitals: Vital Signs - 12hr 03/10/19 03/11/19 03/11/19 23:55 06:42 08:00 Temperature 98.8 F 32.1 F L Pulse Rate 102 H 85 Pulse Rate [ 87 Throughout] Respiratory 20 16 Rate Respiratory 16 Rate [ Throughout] Blood Pressure 116/66 116/54 O2 Sat by Pulse 91 99 Oximetry 03/11/19 09:29 Temperature Pulse Rate Pulse Rate [ Throughout] Respiratory Rate Respiratory Rate [ Throughout] Blood Pressure O2 Sat by Pulse 97 Oximetry General appearance: Present: no acute distress, well-nourished - EENT Eyes: PERRL, EOM intact ENT: hearing intact, clear oral mucosa Ears: bilateral: normal - Neck Neck: supple, normal ROM - Respiratory Respiratory effort: normal Respiratory: bilateral: CTA, rhonchi, wheezing - Breasts Breasts: normal - Cardiovascular Rhythm: regular Heart Sounds: Present: S1 & S2. Absent: gallop, rub Extremities: pulses intact, No edema, normal color, Full ROM - Gastrointestinal General gastrointestinal: Present: soft, non-tender, non-distended, normal bowel sounds - Genitourinary Female genitourinary: normal - Integumentary Integumentary: clear, warm, dry - Musculoskeletal Musculoskeletal: 1, strength equal bilaterally - Neurologic Neurologic: moves all extremities - Psychiatric Psychiatric: memory intact, appropriate mood/affect, intact judgment & insight - Labs CBC & Chem 7: 03/10/19 11:40 03/10/19 11:40 Labs: Abnormal lab results 03/10/19 03/10/19 03/10/19 Range/Units 11:40 11:40 11:40 WBC 19.9 H (4.5-11.0) K/mm3 MCHC 36 H (30-34) % Plt Count 564 H (140-440) K/mm3 Lymph % (Auto) 11.2 L (13.4-35.0) % Eos % (Auto) 5.1 H (0.0-4.3) % Eos # 1.0 H (0.0-0.4) K/mm3 Seg Neutrophils % 79.6 H (40.0-70.0) % Seg Neutrophils # 15.9 H (1.8-7.7) K/mm3 Carbon Dioxide 20 L (22-30) mmol/L BUN 5 L (7-17) mg/dL Creatinine 0.5 L (0.7-1.2) mg/dL Glucose 120 H (65-100) mg/dL Lactic Acid 2.70 H* (0.7-2.0) mmol/L
--- NOTE | 2019-03-11 11:37 | History and Physical Report ---
CHIEF COMPLAINT: 1. Cough for 3 weeks. 2. Fever for 1 day. HISTORY OF PRESENT ILLNESS: A 28-year-old female with history of asthma, comes to the Emergency Room for cough of 3 weeks' duration. Also not feeling well for the last one day. Wheezing present. Low-grade fever present. Chest wall pain on the left side for 1 week, exacerbation by walking and exertion, relieved by rest. PAST MEDICAL HISTORY: Significant for asthma. Otherwise, no significant past medical history. PAST SURGICAL HISTORY: None. SOCIAL HISTORY: Smokes over a pack a day. FAMILY HISTORY: Hypertension. CURRENT MEDICATIONS: Nexium, Zoloft, trazodone. REVIEW OF SYSTEMS: Significant for shortness of breath, wheezing and left-sided chest pain. Cough productive of mucoid sputum. PHYSICAL EXAMINATION: VITAL SIGNS: Temperature of 99.4, blood pressure 150/89, respiratory rate is 24, sats are 89%. HEENT: Unremarkable. Pupils equal and reactive. NECK: Supple, no lymphadenopathy, no thyromegaly. LUNGS: Scattered rhonchi bilaterally. Rales on the left infrascapular area. ABDOMEN: Soft and benign. No hepatosplenomegaly, no guarding, no rigidity. Hernial orifices are normal. EXTREMITIES: Good pedal pulses. No pedal edema. CENTRAL NERVOUS SYSTEM: Alert and oriented x 4, nonfocal exam. LABORATORY DATA: Significant for white count of 19,900; platelet count of 564; H and H is 13.8 and 38.6. Sodium is 137, potassium is 3.7, bicarb is 20, chloride is 99.2, BUN and creatinine is 5 and 0.5, glucose is 120. Chest x-ray shows left lower lobe patchy infiltrate. ASSESSMENT AND PLAN: 1. Left lower lobe pneumonia consistent with community-acquired pneumonia. The patient started on Rocephin and Zithromax. 2. Asthma exacerbation. The patient started on Solu-Medrol and nebulizer treatments. 3. Nicotine dependence. The patient started on Nicoderm patch. JOB# [id number] VSM/NTS
[2019-03-11] MEDS: NICOTINE 14 MG/24 HR PATCH TD SCH (14:47)
[2019-03-11] MEDS: D5W/0.9% NACL 1,000 ML IV SCH (14:47)
[2019-03-11] MEDS: AZITHROMYCIN 500 MG in SODIUM CHLORIDE 0.9% 250ML 250 ML IV SCH (14:47)
[2019-03-11] MEDS: methylPREDNISolone Sod Succinate 125 MG/2 ML INJ IV SCH ×2 (14:48→21:12)
[2019-03-11] MEDS: FAMOTIDINE 20 MG TAB PO SCH (21:12)
[2019-03-12] MEDS: methylPREDNISolone Sod Succinate 125 MG/2 ML INJ IV SCH ×3 (06:18→21:58)
[2019-03-12] MEDS: IPRATROPIUM/ALBUTEROL SULFATE 3 ML AMPUL.NEB IH SCH ×3 (08:10→19:59)
[2019-03-12] MEDS: D5W/0.9% NACL 1,000 ML IV SCH (08:16)
[2019-03-12 08:48] LABS: Basophils % (Auto) 0.2 % (0.0-1.8); Hematocrit 38.2 % (30.3-42.9); Hemoglobin 12.9 gm/dl (10.1-14.3); Lymphocytes # (Auto) 1.5 K/mm3 (1.2-5.4); Lymphocytes % (Auto) 8.3 % (13.4-35.0); Mean Corpuscular HGB Conc 34 % (30-34); Mean Corpuscular Volume 87 fl (79-97); Monocytes # (Auto) 0.3 K/mm3 (0.0-0.8); Monocytes % (Auto) 1.6 % (0.0-7.3); Platelet Count 584 K/mm3 (140-440); Red Blood Count 4.37 M/mm3 (3.65-5.03); Red Cell Distribution Width 13.2 % (13.2-15.2)
[2019-03-12 09:18] LABS: Alanine Aminotransferase 15 units/L (7-56); Albumin 3.5 g/dL (3.9-5); BUN/Creatinine Ratio 15; Blood Urea Nitrogen 6 mg/dL (7-17); Calcium 9.2 mg/dL (8.4-10.2); Hemolysis Index 3
[2019-03-12] MEDS: cefTRIAXone/NS 2 GM/100 ML 2 GM/100 ML BAG IV SCH (10:31)
[2019-03-12] MEDS: NICOTINE 14 MG/24 HR PATCH TD SCH (10:32)
[2019-03-12] MEDS: FAMOTIDINE 20 MG TAB PO SCH ×2 (10:32→21:59)
[2019-03-12] MEDS: HEPARIN 5,000 UNIT/1 ML VIAL SUB-Q SCH ×2 (10:32→21:58)
[2019-03-12] MEDS: AZITHROMYCIN 500 MG in SODIUM CHLORIDE 0.9% 250ML 250 ML IV SCH (11:38)
--- NOTE | 2019-03-12 13:57 | Progress Note ---
Assessment and Plan - Patient Problems (1) SIRS (systemic inflammatory response syndrome) Current Visit: Yes Status: Acute Plan to address problem: Clinical picture consistent with systemic inflammatory response syndrome Patient has high white count tach, tachypnea, high lactic acid and fever. (2) Community acquired pneumonia Current Visit: Yes Status: Acute Qualifiers: Laterality: left Lung location: lower lobe of lung Qualified Code(s): J18.9 - Pneumonia, unspecified organism Plan to address problem: Patient started on IV antibiotics Rocephin and Zithromax Bronchodilators via nebulizer machine PRN Low-dose steroids (3) Asthma exacerbation Current Visit: Yes Status: Acute Qualifiers: Asthma severity: moderate Plan to address problem: IV antibiotics, IV Solu-Medrol and nebulizer treatments (4) Nicotine dependence Current Visit: Yes Status: Chronic Qualifiers: Nicotine product type: cigarettes Plan to address problem: Patient counseled about stopping smoking NicoDerm patch initiated (5) DVT prophylaxis Current Visit: Yes Status: Acute Plan to address problem: Heparin 5000 every 12 Subjective Date of service: 03/12/19 Principal diagnosis: CAP and Asthma exacerbation Interval history: 28-year-old female, history of asthma, presents to ED with cough x 3 weeks. Patient reports fever, shortness of breath, pain with cough. Patient states she has been taking TheraFlu at home with no relief. Patient states the chest wall pain started one week ago. Still coughing and SOB.But better Objective - Constitutional Vitals: Vital Signs - 12hr 03/12/19 03/12/19 03/12/19 06:12 08:15 08:30 Temperature 99.0 F Pulse Rate 69 Pulse Rate [ 98 H Throughout] Respiratory 18 16 Rate Respiratory 18 Rate [ Throughout] Blood Pressure 142/88 O2 Sat by Pulse 97 Oximetry 03/12/19 03/12/19 09:29 11:11 Temperature 97.8 F Pulse Rate 98 H Pulse Rate [ Throughout] Respiratory 16 Rate Respiratory Rate [ Throughout] Blood Pressure 119/78 O2 Sat by Pulse 94 96 Oximetry General appearance: Present: no acute distress, well-nourished - EENT Eyes: PERRL, EOM intact ENT: hearing intact, clear oral mucosa Ears: bilateral: normal - Neck Neck: supple, normal ROM - Respiratory Respiratory effort: normal Respiratory: bilateral: CTA - Breasts Breasts: normal - Cardiovascular Heart rate: 78 Rhythm: regular Heart Sounds: Present: S1 & S2. Absent: gallop, rub Extremities: pulses intact, No edema, normal color, Full ROM - Gastrointestinal General gastrointestinal: Present: soft, non-tender, non-distended, normal bowel sounds - Genitourinary Female genitourinary: normal - Integumentary Integumentary: clear, warm, dry - Musculoskeletal Musculoskeletal: 1, strength equal bilaterally - Neurologic Neurologic: moves all extremities - Psychiatric Psychiatric: memory intact, appropriate mood/affect, intact judgment & insight - Labs CBC & Chem 7: 03/12/19 08:04 03/12/19 08:04 Labs: Abnormal lab results 03/12/19 03/12/19 Range/Units 08:04 08:04 WBC 18.5 H (4.5-11.0) K/mm3 Plt Count 584 H (140-440) K/mm3 Lymph % (Auto) 8.3 L (13.4-35.0) % Seg Neutrophils % 89.9 H (40.0-70.0) % Seg Neutrophils # 16.6 H (1.8-7.7) K/mm3 BUN 6 L (7-17) mg/dL Creatinine 0.4 L (0.7-1.2) mg/dL Glucose 127 H (65-100) mg/dL Albumin 3.5 L (3.9-5) g/dL
[2019-03-12] MEDS: oxyCODONE /ACETAMINOPHEN 5-325MG TAB PO PRN ×2 (14:47→22:00)
[2019-03-12] MEDS: guaiFENesin DM 200/20 MG ORAL LIQD 10 ML PO PRN ×2 (14:48→21:59)
[2019-03-13] MEDS: D5W/0.9% NACL 1,000 ML IV SCH (06:15)
[2019-03-13] MEDS: methylPREDNISolone Sod Succinate 125 MG/2 ML INJ IV SCH (06:15)
[2019-03-13] MEDS: IPRATROPIUM/ALBUTEROL SULFATE 3 ML AMPUL.NEB IH SCH ×2 (08:21→15:02)
[2019-03-13] MEDS: cefTRIAXone/NS 2 GM/100 ML 2 GM/100 ML BAG IV SCH (10:00)
[2019-03-13] MEDS: HEPARIN 5,000 UNIT/1 ML VIAL SUB-Q SCH (10:01)
[2019-03-13] MEDS: NICOTINE 14 MG/24 HR PATCH TD SCH (10:01)
[2019-03-13] MEDS: FAMOTIDINE 20 MG TAB PO SCH (10:01)
[2019-03-13] MEDS: oxyCODONE /ACETAMINOPHEN 5-325MG TAB PO PRN (10:09)
[2019-03-13] MEDS: AZITHROMYCIN 500 MG in SODIUM CHLORIDE 0.9% 250ML 250 ML IV SCH (10:10)
[2019-03-13] MEDS: guaiFENesin DM 200/20 MG ORAL LIQD 10 ML PO PRN (10:10)
[2019-03-13 12:27] VITALS: BP 138/82
[2019-03-13 15:16] LABS: Hematocrit 37.5 % (30.3-42.9); Hemoglobin 12.6 gm/dl (10.1-14.3); Mean Corpuscular HGB Conc 34 % (30-34); Mean Corpuscular Volume 88 fl (79-97); Platelet Count 648 K/mm3 (140-440); Red Blood Count 4.27 M/mm3 (3.65-5.03); Red Cell Distribution Width 13.5 % (13.2-15.2)
[2019-03-13 15:34] LABS: Alanine Aminotransferase 162 units/L (7-56); Albumin 3.4 g/dL (3.9-5); BUN/Creatinine Ratio 15; Blood Urea Nitrogen 9 mg/dL (7-17); Calcium 9.3 mg/dL (8.4-10.2); Hemolysis Index 13
--- NOTE | 2019-03-13 16:42 | Discharge Summary ---
Providers - Providers Date of Admission: 03/10/19 14:25 Date of discharge: 03/13/19 Attending physician: FLYNN LUCERO [facility] Condition: Stable Hospital course: 28-year-old female, history of asthma, presents to ED with cough x 3 weeks. Patient reports fever, shortness of breath, pain with cough. Patient states she has been taking TheraFlu at home with no relief. Patient states the chest wall pain started one week ago. Still coughing and SOB.But better L side PNA Signed out AMA (1) SIRS (systemic inflammatory response syndrome) Current Visit: Yes Status: Acute Plan to address problem: Improved (2) Community acquired pneumonia Current Visit: Yes Status: Acute Qualifiers: Laterality: left Lung location: lower lobe of lung Qualified Code(s): J18.9 - Pneumonia, unspecified organism Plan to address problem: Patient was about to be discharged home. But patient signs out AMA (3) Asthma exacerbation Current Visit: Yes Status: Acute Qualifiers: Asthma severity: moderate Plan to address problem: IV antibiotics, IV Solu-Medrol and nebulizer treatments (4) Nicotine dependence Current Visit: Yes Status: Chronic Qualifiers: Nicotine product type: cigarettes Plan to address problem: Patient counseled about stopping smoking NicoDerm patch initiated (5) DVT prophylaxis Current Visit: Yes Status: Acute Plan to address problem: Heparin 5000 every 12 Subjective Date of service: 03/12/19 Principal diagnosis: CAP and Asthma exacerbation Interval history: Disposition: [id number] LEFT AGAINST MED ADVICE - Discharge Diagnoses (1) SIRS (systemic inflammatory response syndrome) Status: Acute (2) Community acquired pneumonia Status: Acute Qualifiers: Laterality: left Lung location: lower lobe of lung Qualified Code(s): J18.9 - Pneumonia, unspecified organism (3) Asthma exacerbation Status: Acute Qualifiers: Asthma severity: moderate (4) Nicotine dependence Status: Chronic Qualifiers: Nicotine product type: cigarettes (5) DVT prophylaxis Status: Acute Core Measure Documentation - Palliative Care Palliative Care/ Comfort Measures: Not Applicable - Core Measures Any of the following diagnoses?: none Exam - Constitutional Vitals: Temp Pulse Resp BP Pulse Ox 98.2 F 104 H 18 138/82 93 03/13/19 11:52 03/13/19 11:52 03/13/19 11:52 03/13/19 11:52 03/13/19 11:52 General appearance: Present: no acute distress, well-nourished - EENT Eyes: Present: PERRL ENT: hearing intact, clear oral mucosa - Neck Neck: Present: supple, normal ROM - Respiratory Respiratory effort: normal Respiratory: bilateral: rhonchi, wheezing - Cardiovascular Heart rate: 78 Rhythm: regular Heart Sounds: Present: S1 & S2. Absent: rub, click - Extremities Extremities: no ischemia, pulses intact, pulses symmetrical, No edema Peripheral Pulses: within normal limits - Abdominal General gastrointestinal: Present: soft, non-tender, non-distended, normal bowel sounds Female genitourinary: Present: normal - Integumentary Integumentary: Present: clear, warm, dry - Musculoskeletal Musculoskeletal: gait normal, strength equal bilaterally - Psychiatric Psychiatric: appropriate mood/affect, intact judgment & insight - Neurologic Neurologic: CNII-XII intact, moves all extremities - Allied Health Allied health notes reviewed: nursing, case management Plan Activity: no restrictions Diet: regular Follow up with: MARVIN MYRICK MD [Primary Care Provider] - 3-5 Days
[2019-03-13 16:44] LABS: Basophils % (Manual) 0 % (0.0-1.8); Eosinophils % (Manual) 0 % (0.0-4.3); Platelet Estimate Consistent w Auto; RBC Morphology Normal; Total Cells Counted 100
== END 2019-03-13 16:24 | disposition left against medical advice (07) | DRG 202 ==
LOC: ED 11:07 → 3A 14:25
PROVIDERS: ADMIT Internal Medicine; ATTEND Internal Medicine
DX: J45.901 Unspecified asthma with (acute) exacerbation (principal); J18.9 Pneumonia, unspecified organism; R65.10 Systemic inflammatory response syndrome (SIRS) of non-infectious origin without acute organ dysfunction; R09.02 Hypoxemia; F17.210 Nicotine dependence, cigarettes, uncomplicated; Z88.5 Allergy status to narcotic agent; Z88.0 Allergy status to penicillin; Z79.899 Other long term (current) drug therapy; Z82.49 Family history of ischemic heart disease and other diseases of the circulatory system
CPT/HCPCS: 36415; 71046; 80053; 81001; 82140; 83036; 84484; 84703; 85007; 85025; 87040; 94640; 94644; 94667; 94760; 99406; G0378; J0456; J0696; J1644; J1956; J2930; J7030; J7042; J7050

== ENCOUNTER 2019-03-30 16:43 | Emergency (ER) | payer OTHER ==
--- NOTE | 2019-03-30 16:59 | Event Note ---
ED Screening Note ED Screening Note: +sob +productive cough no fever PMHx asthma, depression, anxiety allergy: bees, codeine, PCN states she has used three nebulizers treatments a day LNMP: 03/09/19 This initial assessment/diagnostic orders/clinical plan/treatment(s) is/are subject to change based on patients health status, clinical progression and re- assessment by fellow clinical providers in the ED. Further treatment and workup at subsequent clinical providers discretion. Patient/guardian urged not to elope from the ED as their condition may be serious if not clinically assessed and managed. Initial orders include: CXR, labs, neb tx, steroids
[2019-03-30] MEDS ORDERED: ALBUTEROL 2.5 MG/3 ML NEBU IH ONE (17:00)
[2019-03-30] MEDS ORDERED: methylPREDNISolone Sod Succinate 125 MG/2 ML INJ IV ONE (17:00)
[2019-03-30] MEDS ORDERED: IPRATROPIUM 0.02% NEBU 2.5 ML IH ONE (17:00)
[2019-03-30 17:01] VITALS: BP 133/93
--- NOTE | 2019-03-30 17:41 | XRay Report ---
CHEST 2 VIEWS INDICATION / CLINICAL INFORMATION: cough, SOB. COMPARISON: Chest x-ray 03/10/2019 FINDINGS: SUPPORT DEVICES: None. HEART / MEDIASTINUM: No significant abnormality. LUNGS / PLEURA: No significant pulmonary or pleural abnormality. No pneumothorax. ADDITIONAL FINDINGS: No significant additional findings. IMPRESSION: 1. No acute findings. Signer Name: Alex Kinsey MD Signed: 03/30/2019 5:37 PM Workstation Name: [id number]
[2019-03-30 17:56] LABS: Basophils # (Auto) 0.2 K/mm3 (0.0-0.1); Basophils % (Auto) 0.9 % (0.0-1.8); Eosinophils # (Auto) 1.4 K/mm3 (0.0-0.4); Hemoglobin 14.9 gm/dl (10.1-14.3); Lymphocytes # (Auto) 3.1 K/mm3 (1.2-5.4); Mean Corpuscular HGB Conc 34 % (30-34); Mean Corpuscular Volume 88 fl (79-97); Monocytes % (Auto) 5.2 % (0.0-7.3); Platelet Count 604 K/mm3 (140-440); Red Blood Count 4.98 M/mm3 (3.65-5.03); Red Cell Distribution Width 13.9 % (13.2-15.2)
[2019-03-30 18:15] LABS: BUN/Creatinine Ratio 16; Blood Urea Nitrogen 8 mg/dL (7-17); Calcium 9.8 mg/dL (8.4-10.2); Hemolysis Index 12
== END 2019-03-30 20:30 | disposition left against medical advice (07) ==
LOC: ED 16:43
DX: R06.02 Shortness of breath (principal); Z53.21 Procedure and treatment not carried out due to patient leaving prior to being seen by health care provider
CPT/HCPCS: 36415; 71046; 80048; 85025

== ENCOUNTER 2019-04-13 23:54 | Inpatient (IN) | payer SELFPAY ==
[2019-04-14] MEDS ORDERED: IPRATROPIUM 0.02% NEBU 2.5 ML IH ONE (00:22)
[2019-04-14] MEDS ORDERED: ALBUTEROL 2.5 MG/3 ML NEBU IH ONE (00:22)
[2019-04-14] MEDS ORDERED: EPINEPHrine/PF (1:1,000) 1 MG/1 ML INJ SUB-Q ONE (00:22)
[2019-04-14] MEDS ORDERED: ACETAMINOPHEN 325 MG TAB PO STA (00:22)
--- NOTE | 2019-04-14 00:24 | Emergency Department Report ---
ED General Adult HPI - General Chief complaint: Dyspnea/Respdistress Stated complaint: VIN Time Seen by Provider: 04/14/19 00:12 Source: patient, EMS (verbal report received from emergency medical services. At time of chart dictation, typed notes from EMS not available), RN notes reviewed, old records reviewed Mode of arrival: Stretcher Limitations: Physical Limitation - History of Present Illness Initial comments: Patient is a 28-year-old female, has a history of asthma, admitted to this hospital mid February 2019 for asthma exacerbation and possible pneumonia, treated with levofloxacin, signed out AMA. sHe presented 03/30/2019 for shortness of breath, had clear chest x-ray. Seen by her primary care doctor last week, at [facility], given azithromycin for "bronchitis." Brought to the hospital by EMS today with a complaint of cough, wheezing, shortness of breath, mucus production, malaise, fatigue, and muscular back pain. Also endorses brown stool with "blood clots." For 1 week. States she is not taking blood thinning medications. Denies urinary symptoms. EMS gave albuterol, Atrovent, steroids and magnesium, repeat albuterol, with mild improvement in symptoms. In the emergency room, patient has wheezes, tachypnea, tachycardia, increased work of breathing, saturating at 90% on albuterol therapy. She is guaiac nega tive on her rectal examination. She has a chronic leukocytosis, likely stress reaction versus secondary to infection, versus secondary to steroid use. X-ray of the chest today shows bilateral upper lobe pneumonia, new when compared to a few days ago. Screening laboratory studies are otherwise reviewed and appreciated. Patient meets sepsis criteria, has evidence of hypoxic respiratory failure secondary to multilobar pneumonia, as well as refractory asthma, also given subcutaneous epinephrine, requires admission to the medical service for further management. Case is presented to Hospital physician, Dr. Montoya, who has accepted the patient to the medical service. -: Gradual Location: back Consistency: constant Improves with: medication, rest Worsens with: movement - Related Data Home Medications Medication Instructions Recorded Confirmed Last Taken Tylenol Pm Ex-Strength Caplet 1 tab PO DAILY 09/20/16 03/10/19 03/09/19 Albuterol Sulfate [Proair 2 puff IH Q4HR PRN 03/10/19 03/10/19 03/10/19 Respiclick] Esomeprazole Magnesium [NexIUM] 40 mg PO QDAY 03/10/19 03/10/19 03/09/19 Sertraline [Zoloft] 50 mg PO QDAY 03/10/19 03/10/19 Unknown traZODone [Desyrel] 100 mg PO QHS 03/10/19 03/10/19 1 Week Ago ~03/03/19 Previous Rx's Medication Instructions Recorded Last Taken Type Prednisone [predniSONE 10 mg 10 mg PO QDAY #5 tab 03/13/19 Unknown Rx (6-Day Pack, 21 Tabs)] Prednisone [predniSONE 10 mg 10 mg PO QDAY 7 Days #7 tab 03/13/19 Unknown Rx (6-Day Pack, 21 Tabs)] levoFLOXacin [Levaquin] 750 mg PO QDAY #7 tablet 03/13/19 Unknown Rx levoFLOXacin [Levaquin] 750 mg PO QDAY #7 tablet 03/13/19 Unknown Rx levoFLOXacin [Levaquin] 750 mg PO QDAY #8 tablet 03/13/19 Unknown Rx Allergies Allergy/AdvReac Type Severity Reaction Status Date / Time codeine AdvReac Intermediate Itching Verified 05/10/13 02:46 Penicillins AdvReac Intermediate Itching Verified 05/10/13 02:46 ED Review of Systems ROS: Stated complaint: VIN Other details as noted in HPI Constitutional: malaise, weakness Eyes: denies: eye discharge ENT: congestion Respiratory: cough, shortness of breath, SOB with exertion, SOB at rest, wheezing Cardiovascular: denies: syncope Gastrointestinal: hematochezia. denies: abdominal pain, hematemesis, melena Genitourinary: denies: dysuria Musculoskeletal: back pain Skin: denies: lesions Neurological: weakness Psychiatric: anxiety Hematological/Lymphatic: denies: easy bleeding ED Past Medical Hx - Past Medical History Hx Hypertension: No Hx Congestive Heart Failure: No Hx Diabetes: No Hx Deep Vein Thrombosis: No Hx Renal Disease: No Hx Sickle Cell Disease: No Hx Seizures: No Hx Asthma: Yes Hx COPD: No Hx HIV: No - Social History Smoking Status: Former Smoker Substance Use Type: None - Medications Home Medications: Home Medications Medication Instructions Recorded Confirmed Last Taken Type Tylenol Pm Ex-Strength Caplet 1 tab PO DAILY 09/20/16 03/10/19 03/09/19 History Albuterol Sulfate [Proair 2 puff IH Q4HR PRN 03/10/19 03/10/19 03/10/19 History Respiclick] Esomeprazole Magnesium [NexIUM] 40 mg PO QDAY 03/10/19 03/10/19 03/09/19 History Sertraline [Zoloft] 50 mg PO QDAY 03/10/19 03/10/19 Unknown History traZODone [Desyrel] 100 mg PO QHS 03/10/19 03/10/19 1 Week Ago History ~03/03/19 Prednisone [predniSONE 10 mg 10 mg PO QDAY #5 tab 03/13/19 Unknown Rx (6-Day Pack, 21 Tabs)] Prednisone [predniSONE 10 mg 10 mg PO QDAY 7 Days #7 tab 03/13/19 Unknown Rx (6-Day Pack, 21 Tabs)] levoFLOXacin [Levaquin] 750 mg PO QDAY #7 tablet 03/13/19 Unknown Rx levoFLOXacin [Levaquin] 750 mg PO QDAY #7 tablet 03/13/19 Unknown Rx levoFLOXacin [Levaquin] 750 mg PO QDAY #8 tablet 03/13/19 Unknown Rx ED Physical Exam - General General appearance: alert, anxious, in distress, obese - Head Head exam: Present: atraumatic, normocephalic - Eye Eye exam: Present: normal appearance, EOMI. Absent: nystagmus - ENT ENT exam: Present: normal exam, normal orophraynx, mucous membranes moist, normal external ear exam - Neck Neck exam: Present: normal inspection, full ROM. Absent: tenderness, meningismus - Respiratory Respiratory exam: Present: respiratory distress, wheezes, rhonchi, accessory muscle use - Cardiovascular Cardiovascular Exam: Present: normal rhythm, tachycardia, normal heart sounds. Absent: systolic murmur, diastolic murmur, rubs, gallop - GI/Abdominal GI/Abdominal exam: Present: soft. Absent: distended, tenderness, guarding, rebound, rigid, pulsatile mass - Rectal Rectal exam: Present: normal inspection, normal rectal tone, heme (-) stool, other (chaperoned by nurse Jessica Ojeda). Absent: heme (+) stool, black stool, bloody stool - Extremities Exam Extremities exam: Present: normal inspection, full ROM, other (2+ pulses noted in the bilateral upper and lower extremities. There is no long bony tenderness. The pelvis is stable. The muscular compartments are soft. There is no palpable cord. There is no redness, pus or streaking.). Absent: pedal edema, calf tenderness - Back Exam Back exam: Present: normal inspection, full ROM, muscle spasm, paraspinal tenderness. Absent: vertebral tenderness - Neurological Exam Neurological exam: Present: alert, other (there is no facial droop. Tongue is midline. Extraocular movements are intact bilaterally. Walking with a steady gait. Speaking in full sentences. Normal appropriate thought content. 5 out of 5 strength in 4 extremities. Sensation is intact to light touch in 4 extremities.). Absent: motor sensory deficit - Psychiatric Psychiatric exam: Present: anxious - Skin Skin exam: Present: warm, dry, intact, normal color. Absent: rash ED Course Vital Signs 04/14/19 04/14/19 04/14/19 01:13 02:02 02:22 Temperature 98.5 F Pulse Rate 114 H 120 H Pulse Rate [ 72 Anterior] Respiratory 30 H 30 H Rate Respiratory 22 Rate [Anterior] Blood Pressure 129/68 127/77 [Right] O2 Sat by Pulse 94 92 Oximetry ED Medical Decision Making - Lab Data Result diagrams: 04/14/19 00:42 04/14/19 00:42 EKG shows a sinus tachycardia, 117 bpm, normal axis, QTC 450 ms, motion artifact, the EKG has nonspecific abnormalities, the EKG is not consistent with a STEMI Vital Signs 04/14/19 04/14/19 04/14/19 01:13 02:02 02:22 Temperature 98.5 F Pulse Rate 114 H 120 H Pulse Rate [ 72 Anterior] Respiratory 30 H 30 H Rate Respiratory 22 Rate [Anterior] Blood Pressure 129/68 127/77 [Right] O2 Sat by Pulse 94 92 Oximetry Labs 04/14/19 04/14/19 04/14/19 00:42 00:42 00:42 WBC 21.9 H RBC 4.35 Hgb 12.8 Hct 38.2 MCV 88 MCH 29 MCHC 34 RDW 13.7 Plt Count 753 H PT 12.7 INR 0.94 Sodium 138 Potassium 4.4 Chloride 97.9 L Carbon Dioxide 26 Anion Gap 19 BUN 3 L Creatinine 0.5 L Estimated GFR > 60 BUN/Creatinine Ratio 6 Glucose 115 H Calcium 9.5 Magnesium 2.60 H Total Bilirubin Direct Bilirubin Indirect Bilirubin AST ALT Alkaline Phosphatase Total Creatine Kinase 63 Total Protein Albumin Albumin/Globulin Ratio HCG, Quant 04/14/19 04/14/19 00:42 00:42 WBC RBC Hgb Hct MCV MCH MCHC RDW Plt Count PT INR Sodium Potassium Chloride Carbon Dioxide Anion Gap BUN Creatinine Estimated GFR BUN/Creatinine Ratio Glucose Calcium Magnesium Total Bilirubin < 0.20 Direct Bilirubin < 0.2 Indirect Bilirubin 0.0 AST 27 ALT 14 Alkaline Phosphatase 149 H Total Creatine Kinase Total Protein 7.4 Albumin 3.4 L Albumin/Globulin Ratio 0.9 HCG, Quant < 2 - EKG Data -: EKG Interpreted by Me EKG shows normal: sinus rhythm Rate: normal - Radiology Data Radiology results: report reviewed, image reviewed interpreted by me: X-ray of the chest today shows bilateral upper lobe pneumonia Print Report Referring Physician: BRI MCDONNELL Patient Name: JAMEY RUIZ Date of : 1990 Sex: Female Report Date: 2019-03-30 Report Status: Finalized Findings [address] [address] XRay Report Signed Patient: JAMEY RUIZ MR# : [id number] : 1990 Acct:[id number] Age/Sex: 28 / F ADM Date: 03/30/19 Loc: ED Attending Dr: Ordering Physician: BK ALARCON Date of Service: 03/30/19 Procedure(s): XR chest routine 2V Accession Number(s): [id number] cc: BK ALARCON Fluoro Time In Minutes: CHEST 2 VIEWS INDICATION / CLINICAL INFORMATION: cough, SOB. COMPARISON: Chest x-ray 03/10/2019 FINDINGS: SUPPORT DEVICES: None. HEART / MEDIASTINUM: No significant abnormality. LUNGS / PLEURA: No significant pulmonary or pleural abnormality. No pneumothorax. ADDITIONAL FINDINGS: No significant additional findings. IMPRESSION: 1. No acute findings. Signer Name: Alex Kinsey MD Signed: 03/30/2019 5:37 PM Workstation Name: [id number] Transcribed By: TL Dictated By: Alex Kinsey MD Electronically Authenticated By: Alex Kinsey MD Signed Date/Time: 03/30/19 1737 Print Report Referring Physician: NEMO ORTIZ Patient Name: JAMEY RUIZ Date of : 1990 Sex: Female Report Date: 2019-03-10 Report Status: Finalized Findings [facility] [address] [place] [address] XRay Report Signed Patient: JAMEY RUIZ MR# : [id number] : 1990 Acct:[id number] Age/Sex: 28 / F ADM Date: 03/10/19 Loc: ED Attending Dr: Ordering Physician: NEMO ORTIZ Date of Service: 03/10/19 Procedure(s): XR chest routine 2V Accession Number(s): [id number] cc: NEMO ORTIZ Fluoro Time In Minutes: CHEST 2 VIEWS INDICATION / CLINICAL INFORMATION: O2 at 90%, SOB UPT. COMPARISON: None available. FINDINGS: SUPPORT DEVICES: None. HEART / MEDIASTINUM: No significant abnormality. LUNGS / PLEURA: There is patchy airspace opacity noted in the left lower chest which could represent an evolving pneumonia or atelectasis. The right lung is clear. No pneumothorax is seen. . ADDITIONAL FINDINGS: No significant additional findings. Signer Name: Raza Holder MD Signed: 03/10/2019 1:16 PM Workstation Name: [id number] Transcribed By: SS Dictated By: Raza Holder MD Electronically Authenticated By: Raza Holder MD Signed Date/Time: 03/10/19 1316 - Medical Decision Making Differential diagnosis, including but not limited to: Asthma exacerbation, pneumonia, bronchitis, systemic inflammatory response syndrome Assessment and plan: 28-year-old female with clinical asthma exacerbation, hypoxia, manifestations of systemic inflammatory response syndrome, new objective radiologic evidence of infectious process, requires admission to the hospital for supportive care, antibiotics, and further inpatient management. Arterial blood gas ordered at requests receiving Hospital physician, we will defer to the inpatient team to follow this up. Fluids, antibiotics ordered, patient endorsed anaphylactic response to penicillin, we will cover with doxycycline, Levaquin, and vancomycin. Critical Care Time: Yes Critical care time in (mins) excluding proc time.: 35 Critical care attestation.: If time is entered above; I have spent that time in minutes in the direct care of this critically ill patient, excluding procedure time. ED Disposition Clinical Impression: Hypoxia, Pneumonia, SIRS (systemic inflammatory response syndrome), Asthma exacerbation Disposition: 09 OP ADMIT IP TO THIS HOSP Is pt being admited?: Yes Condition: Serious Instructions: Bacterial Pneumonia (ED)
[2019-04-14 01:08] LABS: Hematocrit 38.2 % (30.3-42.9); Hemoglobin 12.8 gm/dl (10.1-14.3); Mean Corpuscular HGB Conc 34 % (30-34); Mean Corpuscular Volume 88 fl (79-97); Platelet Count 753 K/mm3 (140-440); Red Blood Count 4.35 M/mm3 (3.65-5.03); Red Cell Distribution Width 13.7 % (13.2-15.2)
[2019-04-14 01:20] LABS: BUN/Creatinine Ratio 6; Blood Urea Nitrogen 3 mg/dL (7-17); Calcium 9.5 mg/dL (8.4-10.2); Hemolysis Index 106
[2019-04-14 01:21] LABS: Alanine Aminotransferase 14 units/L (7-56); Albumin 3.4 g/dL (3.9-5)
[2019-04-14 01:26] LABS: INR 0.94 (0.87-1.13)
[2019-04-14 01:34] LABS: Bilirubin,Direct < 0.2 mg/dL (0-0.2)
[2019-04-14] MEDS ORDERED: SODIUM CHLORIDE 0.9% 1000 ML IV SOLN IV ONE (02:31)
--- NOTE | 2019-04-14 02:31 | XRay Report ---
CHEST 1 VIEW INDICATION / CLINICAL INFORMATION: cough wheezing asthma. COMPARISON: 03/30/2019 FINDINGS: SUPPORT DEVICES: None. HEART / MEDIASTINUM: No significant abnormality. LUNGS / PLEURA: There are airspace opacities in the upper lung zones bilaterally.. No pneumothorax. ADDITIONAL FINDINGS: No significant additional findings. IMPRESSION: 1. There is airspace opacity in the upper lung zones bilaterally. Signer Name: Raza Holder MD Signed: 04/14/2019 2:26 AM Workstation Name: [employer]
[2019-04-14] MEDS ORDERED: DOXYCYCLINE HYCLATE 100 MG in SODIUM CHLORIDE 0.9% 250ML 250 ML IV ONE (02:45)
[2019-04-14] MEDS ORDERED: VANCOMYCIN PHARMACY TO DOSE IV SCH (03:00)
[2019-04-14] MEDS ORDERED: ONDANSETRON 4 MG/2 ML INJ IV PRN (03:18)
[2019-04-14] MEDS ORDERED: ACETAMINOPHEN 325 MG TAB PO PRN (03:18)
[2019-04-14] MEDS ORDERED: MAGNESIUM HYDROXIDE (MOM) ORAL LIQD UDC PO PRN (03:18)
--- NOTE | 2019-04-14 03:32 | History and Physical Report ---
History of Present Illness Date of examination: 04/14/19 Date of admission: 04/14/2019 Chief complaint: Cough and shortness of breath History of present illness: 28-year-old female with known history of asthma presenting to the emergency room today complaining of cough and shortness of breath for the past 2 weeks. Patient was seen and admitted recently for a possible pneumonia and started on Levaquin during the admission however patient left the hospital AGAINST MEDICAL ADVICE. Her cough and shortness of breath has not quite resolved and she indicates that she is primary care physician who placed on a course of antibiotic Z-Paul. She indicates she has been having difficulty breathing and has been having cough productive of greenish to brownish sputum at different occasions. She denies any nausea vomiting, no headache or dizziness. Enroute to the hospital today patient had nebulizing treatments given by the EMS, she also had IV steroids. Upon arrival in the emergency room she was found to be hypoxic with O2 saturation in the upper 80s and was subsequently placed on oxygen. Further work-up on patient indicates she has bilateral pneumonia and subs equently started on empiric IV antibiotics . Past History Past Medical History: GERD, other (Asthma, bipolar disorder) Past Surgical History: No surgical history Social history: smoking (Quit tobacco use 2 months ago,), alcohol abuse (Quit alcohol abuse recently) Medications and Allergies Allergies Allergy/AdvReac Type Severity Reaction Status Date / Time codeine AdvReac Intermediate Itching Verified 05/10/13 02:46 Penicillins AdvReac Intermediate Itching Verified 05/10/13 02:46 Home Medications Medication Instructions Recorded Confirmed Last Taken Type Tylenol Pm Ex-Strength Caplet 1 tab PO DAILY 09/20/16 03/10/19 03/09/19 History Albuterol Sulfate [Proair 2 puff IH Q4HR PRN 03/10/19 03/10/19 03/10/19 History Respiclick] Esomeprazole Magnesium [NexIUM] 40 mg PO QDAY 03/10/19 03/10/19 03/09/19 History Sertraline [Zoloft] 50 mg PO QDAY 03/10/19 03/10/19 Unknown History traZODone [Desyrel] 100 mg PO QHS 03/10/19 03/10/19 1 Week Ago History ~03/03/19 Prednisone [predniSONE 10 mg 10 mg PO QDAY #5 tab 03/13/19 Unknown Rx (6-Day Pack, 21 Tabs)] Prednisone [predniSONE 10 mg 10 mg PO QDAY 7 Days #7 tab 03/13/19 Unknown Rx (6-Day Pack, 21 Tabs)] levoFLOXacin [Levaquin] 750 mg PO QDAY #7 tablet 03/13/19 Unknown Rx levoFLOXacin [Levaquin] 750 mg PO QDAY #7 tablet 03/13/19 Unknown Rx levoFLOXacin [Levaquin] 750 mg PO QDAY #8 tablet 03/13/19 Unknown Rx Active Meds: Active Medications Acetaminophen (Tylenol) 650 mg PO Q4H PRN PRN Reason: Pain MILD(1-3)/Fever >100.5/BALL Albuterol/Ipratropium (Duoneb *Not For Prn Use*) 1 ampul IH Q6HRT TOI Hydromorphone HCl (Dilaudid) 0.5 mg IV Q6HR PRN PRN Reason: Pain , Severe (7-10) Vancomycin HCl 2,000 mg/ (Sodium Chloride) 540 mls @ 333 mls/hr IV ONCE ONE; Protocol Stop: 04/14/19 05:37 Levofloxacin/Dextrose (Levaquin 750mg/150ml) 750 mg in 150 mls @ 100 mls/hr IV NOW ONE; Protocol Stop: 04/14/19 04:29 Last Admin: 04/14/19 02:55 Dose: 100 mls/hr Documented by: Doxycycline Hyclate 100 mg/ (Sodium Chloride) 250 mls @ 250 mls/hr IV ONCE ONE; Protocol Stop: 04/14/19 03:44 Vancomycin HCl 1,500 mg/ (Sodium Chloride) 530 mls @ 333.333 mls/hr IV Q8H TOI Sodium Chloride (Nacl 0.9% 1000 Ml) 1,000 mls @ 125 mls/hr IV DIRECT TOI Levofloxacin/Dextrose (Levaquin 750mg/150ml) 750 mg in 150 mls @ 100 mls/hr IV Q24HR TOI; Protocol Magnesium Hydroxide (Milk Of Magnesia) 30 ml PO Q4H PRN PRN Reason: Constipation Methylprednisolone Sodium Succinate (Solu-Medrol) 40 mg IV Q8HR TOI Ondansetron HCl (Zofran) 4 mg IV Q8H PRN PRN Reason: Nausea And Vomiting Sodium Chloride (Sodium Chloride Flush Syringe 10 Ml) 10 ml IV BID TOI Sodium Chloride (Sodium Chloride Flush Syringe 10 Ml) 10 ml IV PRN PRN PRN Reason: LINE FLUSH Review of Systems Constitutional: no weight gain, no fever, no chills Cardiovascular: chest pain, palpitations Respiratory: cough with sputum, shortness of breath Gastrointestinal: nausea, vomiting, diarrhea Musculoskeletal: no neck pain, no low back pain Integumentary: no rash, no pruritis Neurological: no headaches, no change in mentation Exam - Constitutional Vitals: Temp Pulse Resp BP Pulse Ox 98.5 F 120 H 30 H 127/77 92 04/14/19 01:13 04/14/19 02:22 04/14/19 02:22 04/14/19 02:22 04/14/19 02:22 General appearance: Present: mild distress, well-nourished - EENT Eyes: Present: PERRL, EOM intact ENT: hearing intact, clear oral mucosa, dentition normal - Neck Neck: Present: supple, normal ROM - Respiratory Respiratory effort: labored Respiratory: bilateral: rales, wheezing - Cardiovascular Rhythm: regular Heart Sounds: Present: S1 & S2 - Extremities Extremities: no ischemia, No edema, Full ROM Peripheral Pulses: within normal limits - Abdominal General gastrointestinal: Present: soft, non-tender, non-distended, normal bowel sounds - Integumentary Integumentary: Present: clear, warm, dry - Musculoskeletal Musculoskeletal: strength equal bilaterally - Psychiatric Psychiatric: appropriate mood/affect, intact judgment & insight, cooperative - Neurologic Neurologic: CNII-XII intact, moves all extremities Results - Labs CBC & Chem 7: 04/14/19 00:42 04/14/19 00:42 Labs: Abnormal lab results 04/14/19 04/14/19 04/14/19 Range/Units 00:42 00:42 00:42 WBC 21.9 H (4.5-11.0) K/mm3 Plt Count 753 H (140-440) K/mm3 Chloride 97.9 L (98-107) mmol/L BUN 3 L (7-17) mg/dL Creatinine 0.5 L (0.7-1.2) mg/dL Glucose 115 H (65-100) mg/dL Magnesium 2.60 H (1.7-2.3) mg/dL Alkaline Phosphatase 149 H (35-129) units/L Albumin 3.4 L (3.9-5) g/dL Assessment and Plan - Patient Problems (1) Pneumonia Current Visit: Yes Status: Acute Plan to address problem: Patient started on empiric IV antibiotics. We await blood culture results. (2) Asthma exacerbation Current Visit: Yes Status: Acute Plan to address problem: She has been placed on nebulizing treatments, IV steroids, and will keep O2 saturation greater or equal to 92%. (3) Hypoxia Current Visit: Yes Status: Acute Plan to address problem: Possibly secondary to the pneumonia and the asthma exacerbation. We will keep on oxygen to keep O2 saturation greater or equal to 92%. (4) DVT prophylaxis Current Visit: No Status: Acute Plan to address problem: Patient placed on subcutaneous heparin. (5) Full code status Current Visit: Yes Status: Acute
[2019-04-14] MEDS ORDERED: VANCOMYCIN 2,000 MG in SODIUM CHLORIDE 0.9% 500 ML 500 ML IV ONE (04:00)
[2019-04-14] MEDS ORDERED: HYDROmorphone 1 MG/1 ML INJ ONE (04:22)
[2019-04-14] MEDS: HYDROmorphone 1 MG/1 ML INJ IV PRN ×3 (04:36→16:40)
[2019-04-14] MEDS: methylPREDNISolone Sod Succinate 40 MG/1 ML INJ IV SCH ×3 (05:53→21:58)
[2019-04-14] MEDS: SODIUM CHLORIDE 0.9% 1000 ML 1,000 ML IV SCH ×2 (05:56→19:45)
[2019-04-14] MEDS: HEPARIN 5,000 UNIT/1 ML VIAL SUB-Q SCH ×3 (06:00→21:58)
[2019-04-14] MEDS: IPRATROPIUM/ALBUTEROL SULFATE 3 ML AMPUL.NEB IH SCH ×3 (09:25→20:37)
[2019-04-14 11:27] LABS: Bacteria,Urine 1+ /HPF (Negative); Bilirubin,Urine NEG (Negative); Blood,Urine MOD (Negative); Color,Urine Colorless (Yellow); Protein,Urine <15 mg/dL mg/dL (Negative); RBC,Urine < 1.0 /HPF (0.0-6.0); Urobilinogen,Urine < 2.0 mg/dL (<2.0)
[2019-04-14] MEDS: VANCOMYCIN 1,500 MG in SODIUM CHLORIDE 0.9% 500 ML 500 ML IV SCH ×2 (12:01→21:55)
[2019-04-14 15:23] LABS: ABG Base Excess -0.7 mmol/L (-2.0-3.0); ABG HCO3 23.5 mmol/L (20.0-26.0); ABG Methemoglobin 0.6 % (0.0-1.5); ABG Oxygen Saturation 84.5 % (95.0-99.0); ABG PCO2 37.3 mm Hg; ABG PH 7.417 pH Units (7.350-7.450); ABG PO2 49.4 mm Hg (80.0-90.0)
--- NOTE | 2019-04-14 15:25 | Event Note ---
Date: 04/14/19 28-year-old female with known history of asthma presenting to the emergency room today complaining of cough and shortness of breath for the past 2 weeks. admitted for acute respiratory failure, asthma exacerbation and PNA cont current mx and plan
[2019-04-14] MEDS: traZODone 100 MG TAB PO SCH (21:58)
[2019-04-14] MEDS: oxyCODONE /ACETAMINOPHEN 5-325MG TAB PO PRN (23:44)
[2019-04-15] MEDS: IPRATROPIUM/ALBUTEROL SULFATE 3 ML AMPUL.NEB IH SCH ×4 (02:10→21:25)
[2019-04-15] MEDS: guaiFENesin ER 600 MG TAB PO SCH ×3 (02:35→21:10)
[2019-04-15 05:11] LABS: Hematocrit 32.1 % (30.3-42.9); Hemoglobin 10.5 gm/dl (10.1-14.3); Mean Corpuscular HGB Conc 33 % (30-34); Mean Corpuscular Volume 87 fl (79-97); Platelet Count 661 K/mm3 (140-440); Red Blood Count 3.68 M/mm3 (3.65-5.03); Red Cell Distribution Width 13.2 % (13.2-15.2)
[2019-04-15 05:27] LABS: BUN/Creatinine Ratio 8; Blood Urea Nitrogen 3 mg/dL (7-17); Calcium 8.6 mg/dL (8.4-10.2); Hemolysis Index 0
[2019-04-15 06:17] LABS: Anisocytosis 1+; Band Neutrophils # (Manual) 0.1 K/mm3; Basophils % (Manual) 0 % (0.0-1.8); Eosinophils % (Manual) 0 % (0.0-4.3); Platelet Estimate Consistent w Auto; Total Cells Counted 200
[2019-04-15] MEDS: HEPARIN 5,000 UNIT/1 ML VIAL SUB-Q SCH ×3 (06:26→21:09)
[2019-04-15] MEDS: oxyCODONE /ACETAMINOPHEN 5-325MG TAB PO PRN ×4 (06:27→22:25)
[2019-04-15] MEDS: methylPREDNISolone Sod Succinate 40 MG/1 ML INJ IV SCH ×3 (06:27→21:09)
[2019-04-15] MEDS: VANCOMYCIN 1,500 MG in SODIUM CHLORIDE 0.9% 500 ML 500 ML IV SCH ×3 (06:29→20:34)
[2019-04-15] MEDS: SODIUM CHLORIDE 0.9% 1000 ML 1,000 ML IV SCH (08:18)
--- NOTE | 2019-04-15 15:17 | Progress Note ---
Assessment and Plan / Pneumonia, CAP Patient started on empiric IV antibiotics. We await blood culture results. CXR showed b/l UL infiltrates /Asthma exacerbation She has been placed on nebulizing treatments, IV steroids, and will keep O2 saturation greater or equal to 92%. /Acute Hypoxic respiratory failure Possibly secondary to the pneumonia and the asthma exacerbation. We will keep on oxygen to keep O2 saturation greater or equal to 92%. cont nebs and iv abx /Sepsis with PNA, POA presented with lactic acidosis, leukocytosis, tachycardia and tachycardia cont abx /Morbid obesity, diet and exercise regimen outpt / DVT prophylaxis Patient placed on subcutaneous heparin. / Full code status Subjective Date of service: 04/15/19 Interval history: patient seen and examined remained hypoxic on 3-4L n/c c/o pleuretic chest pain and chest pain Objective - Constitutional Vitals: Vital Signs - 12hr 04/15/19 04/15/19 04/15/19 04:00 04:01 06:27 Temperature 98.0 F Pulse Rate 104 H 104 H Pulse Rate [ Anterior Bilateral Throughout] Pulse Rate [ Apical] Pulse Rate [ Left Radial] Pulse Rate [ Posterior Bilateral Throughout] Pulse Rate [ Right Radial] Respiratory 18 22 Rate Respiratory Rate [Anterior Bilateral Throughout] Respiratory Rate [Posterior Bilateral Throughout] Blood Pressure 124/75 O2 Sat by Pulse 97 Oximetry 04/15/19 04/15/19 04/15/19 08:12 08:32 08:45 Temperature 98.2 F Pulse Rate 91 H Pulse Rate [ 93 H Anterior Bilateral Throughout] Pulse Rate [ 104 H Apical] Pulse Rate [ 104 H Left Radial] Pulse Rate [ 93 H Posterior Bilateral Throughout] Pulse Rate [ 104 H Right Radial] Respiratory 18 25 H Rate Respiratory 16 Rate [Anterior Bilateral Throughout] Respiratory 18 Rate [Posterior Bilateral Throughout] Blood Pressure 120/74 O2 Sat by Pulse 95 98 98 Oximetry 04/15/19 04/15/19 04/15/19 10:00 11:43 13:24 Temperature 98.6 F Pulse Rate 82 108 H Pulse Rate [ 97 H Anterior Bilateral Throughout] Pulse Rate [ Apical] Pulse Rate [ Left Radial] Pulse Rate [ 96 H Posterior Bilateral Throughout] Pulse Rate [ Right Radial] Respiratory 20 Rate Respiratory 16 Rate [Anterior Bilateral Throughout] Respiratory 18 Rate [Posterior Bilateral Throughout] Blood Pressure 123/77 O2 Sat by Pulse 96 Oximetry General appearance: Present: no acute distress, obese (morbid) - EENT Eyes: PERRL, EOM intact ENT: hearing intact, clear oral mucosa Ears: bilateral: normal - Neck Neck: supple, normal ROM - Respiratory Respiratory effort: normal Respiratory: bilateral: wheezing - Cardiovascular Rhythm: regular Heart Sounds: Present: S1 & S2. Absent: gallop, rub Extremities: pulses intact, No edema, normal color, Full ROM - Gastrointestinal General gastrointestinal: Present: soft, non-tender, non-distended, normal bowel sounds - Integumentary Integumentary: clear, warm, dry - Musculoskeletal Musculoskeletal: 1, strength equal bilaterally - Neurologic Neurologic: moves all extremities - Psychiatric Psychiatric: memory intact, appropriate mood/affect, intact judgment & insight - Labs CBC & Chem 7: 04/15/19 04:26 04/15/19 04:26 Labs: Abnormal lab results 04/14/19 04/14/19 04/14/19 Range/Units 14:55 18:06 20:45 WBC (4.5-11.0) K/mm3 Plt Count (140-440) K/mm3 Seg Neuts % (Manual) (40.0-70.0) % Lymphocytes % (Manual) (13.4-35.0) % Seg Neutrophils # Man (1.8-7.7) K/mm3 ABG pO2 49.4 L (80.0-90.0) mm Hg ABG O2 Saturation 84.5 L (95.0-99.0) % Oxyhemoglobin 83.0 L (95.0-99.0) % Chloride (98-107) mmol/L Carbon Dioxide (22-30) mmol/L BUN (7-17) mg/dL Creatinine (0.7-1.2) mg/dL Glucose (65-100) mg/dL Lactic Acid 2.80 H* 2.70 H* (0.7-2.0) mmol/L 04/14/19 04/14/19 04/15/19 Range/Units 23:25 Unknown 04:26 WBC 27.7 H (4.5-11.0) K/mm3 Plt Count 661 H (140-440) K/mm3 Seg Neuts % (Manual) 93.0 H (40.0-70.0) % Lymphocytes % (Manual) 4.5 L (13.4-35.0) % Seg Neutrophils # Man 25.8 H (1.8-7.7) K/mm3 ABG pO2 (80.0-90.0) mm Hg ABG O2 Saturation (95.0-99.0) % Oxyhemoglobin (95.0-99.0) % Chloride (98-107) mmol/L Carbon Dioxide (22-30) mmol/L BUN (7-17) mg/dL Creatinine (0.7-1.2) mg/dL Glucose (65-100) mg/dL Lactic Acid 2.20 H* 3.20 H* (0.7-2.0) mmol/L 04/15/19 Range/Units 04:26 WBC (4.5-11.0) K/mm3 Plt Count (140-440) K/mm3 Seg Neuts % (Manual) (40.0-70.0) % Lymphocytes % (Manual) (13.4-35.0) % Seg Neutrophils # Man (1.8-7.7) K/mm3 ABG pO2 (80.0-90.0) mm Hg ABG O2 Saturation (95.0-99.0) % Oxyhemoglobin (95.0-99.0) % Chloride 107.5 H (98-107) mmol/L Carbon Dioxide 21 L (22-30) mmol/L BUN 3 L (7-17) mg/dL Creatinine 0.4 L (0.7-1.2) mg/dL Glucose 152 H (65-100) mg/dL Lactic Acid (0.7-2.0) mmol/L
[2019-04-15] MEDS: PANTOPRAZOLE 40 MG TAB PO SCH (20:34)
[2019-04-15] MEDS: traZODone 100 MG TAB PO SCH (21:10)
[2019-04-16] MEDS: IPRATROPIUM/ALBUTEROL SULFATE 3 ML AMPUL.NEB IH SCH ×3 (03:26→13:17)
[2019-04-16] MEDS: methylPREDNISolone Sod Succinate 40 MG/1 ML INJ IV SCH ×3 (05:21→21:38)
[2019-04-16] MEDS: HEPARIN 5,000 UNIT/1 ML VIAL SUB-Q SCH ×3 (05:21→21:38)
[2019-04-16] MEDS: VANCOMYCIN 1,500 MG in SODIUM CHLORIDE 0.9% 500 ML 500 ML IV SCH ×2 (05:21→12:42)
[2019-04-16] MEDS: BENZONATATE 100 MG CAP PO SCH ×4 (05:21→21:38)
[2019-04-16] MEDS: oxyCODONE /ACETAMINOPHEN 5-325MG TAB PO PRN ×3 (07:00→18:40)
[2019-04-16] MEDS: guaiFENesin ER 600 MG TAB PO SCH ×2 (09:54→21:38)
[2019-04-16] MEDS: PANTOPRAZOLE 40 MG TAB PO SCH (09:54)
[2019-04-16] MEDS ORDERED: CYCLOBENZAPRINE 10 MG TAB PO PRN (13:30)
--- NOTE | 2019-04-16 16:33 | Progress Note ---
Assessment and Plan / Pneumonia, CAP Patient started on empiric IV antibiotics. We await blood culture results. CXR showed b/l UL infiltrates /Asthma exacerbation She has been placed on nebulizing treatments, IV steroids, and will keep O2 saturation greater or equal to 92%. /Acute Hypoxic respiratory failure Possibly secondary to the pneumonia and the asthma exacerbation. We will keep on oxygen to keep O2 saturation greater or equal to 92%. drop O2 sat on ambulation, may need home O2 cont nebs and iv abx /Sepsis with PNA, POA presented with lactic acidosis, leukocytosis, tachycardia and tachycardia cont abx /Morbid obesity, diet and exercise regimen outpt / DVT prophylaxis Patient placed on subcutaneous heparin. / Full code status Subjective Date of service: 04/16/19 Interval history: patient seen and examined remained hypoxic on 3-4L n/c c/o pleuretic chest pain and chest pain O2 sats drops to 80% on ambulation Objective - Exam Narrative Exam: General appearance: Present: no acute distress, obese (morbid) - EENT Eyes: PERRL, EOM intact ENT: hearing intact, clear oral mucosa Ears: bilateral: normal - Neck Neck: supple, normal ROM - Respiratory Respiratory effort: normal Respiratory: bilateral: + wheezing - Cardiovascular Rhythm: regular Heart Sounds: Present: S1 & S2. Absent: gallop, rub Extremities: pulses intact, No edema, normal color, Full ROM - Gastrointestinal General gastrointestinal: Present: soft, non-tender, non-distended, normal bowel sounds - Integumentary Integumentary: clear, warm, dry - Musculoskeletal Musculoskeletal: 1, strength equal bilaterally - Neurologic Neurologic: moves all extremities - Psychiatric Psychiatric: memory intact, appropriate mood/affect, intact judgment & insight - Constitutional Vitals: Vital Signs - 12hr 04/16/19 04/16/19 04/16/19 07:00 08:00 08:59 Temperature 98.0 F Pulse Rate 122 H Pulse Rate [ From Monitor] Pulse Rate [ 119 H Posterior Bilateral Throughout] Respiratory 18 20 Rate Respiratory 18 Rate [Posterior Bilateral Throughout] Blood Pressure 133/82 O2 Sat by Pulse 92 Oximetry 04/16/19 04/16/19 04/16/19 10:00 11:34 13:18 Temperature 98.0 F Pulse Rate 121 H Pulse Rate [ 122 H From Monitor] Pulse Rate [ 120 H Posterior Bilateral Throughout] Respiratory 20 18 Rate Respiratory 19 Rate [Posterior Bilateral Throughout] Blood Pressure 119/77 O2 Sat by Pulse 96 95 Oximetry 04/16/19 16:24 Temperature 98.0 F Pulse Rate 90 Pulse Rate [ From Monitor] Pulse Rate [ Posterior Bilateral Throughout] Respiratory 18 Rate Respiratory Rate [Posterior Bilateral Throughout] Blood Pressure 110/66 O2 Sat by Pulse 96 Oximetry - Labs CBC & Chem 7: 04/17/19 04:32 04/15/19 04:26
[2019-04-16] MEDS: LEVALBUTEROL 0.63 MG/3 ML NEBU IH SCH (21:11)
[2019-04-16] MEDS: BUDESONIDE 0.5 MG/2 ML NEBU IH SCH (21:11)
[2019-04-16] MEDS: traZODone 100 MG TAB PO SCH (21:37)
[2019-04-16] MEDS ORDERED: MONTELUKAST 10 MG TAB PO SCH (22:00)
[2019-04-17 05:30] LABS: Hematocrit 34.8 % (30.3-42.9); Hemoglobin 11.2 gm/dl (10.1-14.3); Mean Corpuscular HGB Conc 32 % (30-34); Mean Corpuscular Volume 88 fl (79-97); Platelet Count 741 K/mm3 (140-440); Red Blood Count 3.97 M/mm3 (3.65-5.03); Red Cell Distribution Width 13.3 % (13.2-15.2)
[2019-04-17] MEDS: methylPREDNISolone Sod Succinate 40 MG/1 ML INJ IV SCH ×2 (07:37→17:21)
[2019-04-17] MEDS: BENZONATATE 100 MG CAP PO SCH ×2 (07:37→17:21)
[2019-04-17] MEDS: HEPARIN 5,000 UNIT/1 ML VIAL SUB-Q SCH ×2 (07:37→17:25)
[2019-04-17] MEDS: BUDESONIDE 0.5 MG/2 ML NEBU IH SCH (10:17)
[2019-04-17] MEDS: LEVALBUTEROL 0.63 MG/3 ML NEBU IH SCH (10:17)
[2019-04-17 10:37] LABS: Total Cells Counted 100
[2019-04-17] MEDS: PANTOPRAZOLE 40 MG TAB PO SCH (10:37)
[2019-04-17] MEDS: guaiFENesin ER 600 MG TAB PO SCH (10:37)
[2019-04-17] MEDS: oxyCODONE /ACETAMINOPHEN 5-325MG TAB PO PRN (10:37)
[2019-04-17 10:38] LABS: Anisocytosis 1+; Basophils % (Manual) 0 % (0.0-1.8); Eosinophils % (Manual) 0 % (0.0-4.3)
[2019-04-17 10:39] LABS: Platelet Estimate Consistent w Auto
[2019-04-17] MEDS ORDERED: FLU VACC QUAD 2019-20 (3 YR UP)/PF 60 MCG/0.5 ML SYRINGE IM ONE (12:00)
[2019-04-17] MEDS ORDERED: PNEUMOC 13-VAL CONJ-DIP CRM/PF 0.5 ML IM ONE (12:00)
[2019-04-17 12:34] VITALS: BP 109/62
--- NOTE | 2019-04-17 15:22 | Discharge Summary ---
Providers - Providers Date of Admission: 04/14/19 03:26 Date of discharge: 04/17/19 Attending physician: LOBO STYLES Primary care physician: EMERGENCY COMMUNICATIONS OPERATOR Hospitalization Condition: Serious Hospital course: Discharge diagnosis: / Pneumonia, CAP Patient started on empiric IV antibiotics. We await blood culture results. CXR showed b/l UL infiltrates /Asthma exacerbation She has been placed on nebulizing treatments, IV steroids, and will keep O2 saturation greater or equal to 92%. /Acute Hypoxic respiratory failure Possibly secondary to the pneumonia and the asthma exacerbation. We will keep on oxygen to keep O2 saturation greater or equal to 92%. drop O2 sat on ambulation, may need home O2 cont nebs and iv abx /Sepsis with PNA, POA presented with lactic acidosis, leukocytosis, tachycardia and tachycardia cont abx /Morbid obesity, diet and exercise regimen outpt / DVT prophylaxis Patient placed on subcutaneous heparin. Disposition: TO HOME OR SELFCARE Time spent for discharge: 34 minutes Core Measure Documentation - Palliative Care Palliative Care/ Comfort Measures: Not Applicable - Core Measures Any of the following diagnoses?: none Exam - Physical Exam Narrative exam: General appearance: Present: no acute distress, obese (morbid) - EENT Eyes: PERRL, EOM intact ENT: hearing intact, clear oral mucosa Ears: bilateral: normal - Neck Neck: supple, normal ROM - Respiratory Respiratory effort: normal Respiratory: bilateral: + wheezing - Cardiovascular Rhythm: regular Heart Sounds: Present: S1 & S2. Absent: gallop, rub Extremities: pulses intact, No edema, normal color, Full ROM - Gastrointestinal General gastrointestinal: Present: soft, non-tender, non-distended, normal bowel sounds - Integumentary Integumentary: clear, warm, dry - Musculoskeletal Musculoskeletal: 1, strength equal bilaterally - Neurologic Neurologic: moves all extremities - Psychiatric Psychiatric: memory intact, appropriate mood/affect, intact judgment & insight - Constitutional Vitals: Temp Pulse Resp BP Pulse Ox 98.2 F 117 H 18 109/62 95 04/17/19 12:31 04/17/19 12:31 04/17/19 12:31 04/17/19 12:31 04/17/19 12:31 Plan Activity: advance as tolerated Weight Bearing Status: Weight Bear as Tolerated Diet: low fat, low salt Follow up with: PRIMARY CARE, [Primary Care Provider] - 3-5 Days FLYNN LUCERO MD [Staff Physician] - 7 Days Prescriptions: Montelukast [Singulair] 10 mg PO QHS #30 tablet Cyclobenzaprine [Flexeril 10 MG TAB] 10 mg PO Q8H PRN #14 tablet PRN Reason: Muscle Spasm levoFLOXacin [Levaquin TAB] 750 mg PO QDAY #5 tablet Esomeprazole Magnesium [NexIUM] 40 mg PO QDAY #30 Prednisone [predniSONE 10 mg (6-Day Pack, 21 Tabs)] 10 mg PO QDAY #5 tab ALBUTEROL NEB's [Proventil 0.083% NEBS] 2.5 mg IH TID PRN #30 neb PRN Reason: Wheezing Budesonide/Formoterol Fumarate [Symbicort 160-4.5 Mcg Inhaler] 10.2 gm IH BID #1 hfa.aer.ad Benzonatate [Tessalon Perles] 100 mg PO Q8HR #14 capsule
== END 2019-04-17 17:53 | disposition left against medical advice (07) | DRG 871 ==
LOC: ED 23:54 → 4A 04-14 03:26
PROVIDERS: ADMIT Internal Medicine Geriatric Medicine; ATTEND Internal Medicine
PROC: 4A033R1 Measurement of Arterial Saturation, Peripheral, Percutaneous Approach (ICD-10-PCS; 2019-04-14)
PROC: 3E0234Z Introduction of Serum, Toxoid and Vaccine into Muscle, Percutaneous Approach (ICD-10-PCS; principal; 2019-04-17)
DX: A41.9 Sepsis, unspecified organism (principal); J96.01 Acute respiratory failure with hypoxia; J18.9 Pneumonia, unspecified organism; J45.901 Unspecified asthma with (acute) exacerbation; Z68.41 Body mass index [BMI] 40.0-44.9, adult; E66.01 Morbid (severe) obesity due to excess calories; K21.9 Gastro-esophageal reflux disease without esophagitis; F31.9 Bipolar disorder, unspecified; Z87.891 Personal history of nicotine dependence; Z23 Encounter for immunization; Z71.3 Dietary counseling and surveillance; Z88.6 Allergy status to analgesic agent; Z88.1 Allergy status to other antibiotic agents
CPT/HCPCS: 36415; 36600; 71045; 80048; 80076; 80202; 81001; 82140; 82271; 82550; 82803; 83735; 84702; 85007; 85025; 85027; 85610; 87040; 87086; 90670; 90686; 93005; 93010; 94640; 94644; 94760; 96374; G0378; J0171; J1170; J1644; J1956; J2405; J2920; J3370; J7030; J7040; J7050

== ENCOUNTER 2019-07-30 14:33 | Inpatient (IN) | payer SELFPAY ==
[2019-07-30 15:48] LABS: Alanine Aminotransferase 18 units/L (7-56); BUN/Creatinine Ratio 8; Blood Urea Nitrogen 4 mg/dL (7-17); Calcium 9.7 mg/dL (8.4-10.2); Hemolysis Index 7
[2019-07-30 15:54] LABS: Hemoglobin 13.6 gm/dl (10.1-14.3)
[2019-07-30] MEDS ORDERED: dexAMETHasone 20 MG/5 ML VIAL IV ONE (15:56)
[2019-07-30] MEDS ORDERED: ALBUTEROL 2.5 MG/3 ML NEBU IH ONE (15:56)
[2019-07-30] MEDS ORDERED: IPRATROPIUM 0.02% NEBU 2.5 ML IH ONE (15:56)
[2019-07-30 16:23] LABS: Hematocrit 41.5 % (30.3-42.9); Mean Corpuscular HGB Conc 33 % (30-34); Mean Corpuscular Volume 86 fl (79-97); Platelet Count 755 K/mm3 (140-440); Red Blood Count 4.81 M/mm3 (3.65-5.03); Red Cell Distribution Width 15.6 % (13.2-15.2)
--- NOTE | 2019-07-30 16:25 | Emergency Department Report ---
<BRI MCDONNELL - Last Filed: 07/30/19 22:24> ED General Adult HPI - General Chief complaint: Upper Respiratory Infection Stated complaint: BAD MUCUS Time Seen by Provider: 07/30/19 15:38 Source: patient Mode of arrival: Ambulatory Limitations: No Limitations - History of Present Illness Initial comments: Patient is a 29-year-old female presents emergency room with complaints of a productive cough that began June 17. She states she has green/brown thick mucus. She states that she has left-sided rib pain after frequent coughing. She states that her voice feels hoarse. Patient states that she has been hospitalized 3 times since February 2019 with pneumonia. She denies any fever, shortness of breath, sore throat, chest pain, sick contact, leg swelling. She has a past medical history of asthma, manic depression, insomnia, GERD. She has an allergy to penicillin and codeine. She states her last menstrual cycle was a week and a half ago. She is a current every day smoker half pack per day. - Related Data Home Medications Medication Instructions Recorded Confirmed Last Taken Albuterol Sulfate [Proair 2 puff IH Q4HR PRN 03/10/19 04/15/19 04/11/19 Respiclick] Sertraline [Zoloft] 50 mg PO QDAY 03/10/19 04/15/19 07/29/19 traZODone [Desyrel] 100 mg PO QHS 03/10/19 04/15/19 07/29/19 Previous Rx's Medication Instructions Recorded Last Taken Type ALBUTEROL NEB's [Proventil 0.083% 2.5 mg IH TID PRN #30 neb 04/17/19 Unknown Rx NEBS] Benzonatate [Tessalon Perles] 100 mg PO Q8HR #14 capsule 04/17/19 Unknown Rx Budesonide/Formoterol Fumarate 10.2 gm IH BID #1 hfa.aer.ad 04/17/19 07/30/19 Rx [Symbicort 160-4.5 Mcg Inhaler] Cyclobenzaprine [Flexeril 10 MG 10 mg PO Q8H PRN #14 tablet 04/17/19 Unknown Rx TAB] Esomeprazole Magnesium [NexIUM] 40 mg PO QDAY #30 04/17/19 07/30/19 Rx Montelukast [Singulair] 10 mg PO QHS #30 tablet 04/17/19 07/29/19 Rx Prednisone [predniSONE 10 mg 10 mg PO QDAY #5 tab 04/17/19 Unknown Rx (6-Day Pack, 21 Tabs)] levoFLOXacin [Levaquin TAB] 750 mg PO QDAY #5 tablet 04/17/19 Unknown Rx Allergies Allergy/AdvReac Type Severity Reaction Status Date / Time codeine AdvReac Intermediate Itching Verified 05/10/13 02:46 Penicillins AdvReac Intermediate Itching Verified 05/10/13 02:46 ED Review of Systems Comment: All other systems reviewed and negative ED Past Medical Hx - Past Medical History Previous Medical History?: Yes Hx Hypertension: No Hx Congestive Heart Failure: No Hx Diabetes: No Hx Deep Vein Thrombosis: No Hx Renal Disease: No Hx Sickle Cell Disease: No Hx Seizures: No Hx Asthma: Yes Hx COPD: No Hx HIV: No - Surgical History Past Surgical History?: No - Social History Smoking Status: Current Every Day Smoker Substance Use Type: Methamphetamines - Medications Home Medications: Home Medications Medication Instructions Recorded Confirmed Last Taken Type Albuterol Sulfate [Proair 2 puff IH Q4HR PRN 03/10/19 04/15/19 04/11/19 History Respiclick] Sertraline [Zoloft] 50 mg PO QDAY 03/10/19 04/15/19 07/29/19 History traZODone [Desyrel] 100 mg PO QHS 03/10/19 04/15/19 07/29/19 History ALBUTEROL NEB's [Proventil 0.083% 2.5 mg IH TID PRN #30 neb 04/17/19 Unknown Rx NEBS] Benzonatate [Tessalon Perles] 100 mg PO Q8HR #14 capsule 04/17/19 Unknown Rx Budesonide/Formoterol Fumarate 10.2 gm IH BID #1 hfa.aer.ad 04/17/19 07/30/19 Rx [Symbicort 160-4.5 Mcg Inhaler] Cyclobenzaprine [Flexeril 10 MG 10 mg PO Q8H PRN #14 tablet 04/17/19 Unknown Rx TAB] Esomeprazole Magnesium [NexIUM] 40 mg PO QDAY #30 04/17/19 07/30/19 Rx Montelukast [Singulair] 10 mg PO QHS #30 tablet 04/17/19 07/29/19 Rx Prednisone [predniSONE 10 mg 10 mg PO QDAY #5 tab 04/17/19 Unknown Rx (6-Day Pack, 21 Tabs)] levoFLOXacin [Levaquin TAB] 750 mg PO QDAY #5 tablet 04/17/19 07/31/19 Unknown Rx ED Physical Exam - General Limitations: No Limitations General appearance: alert, in no apparent distress - Head Head exam: Present: atraumatic, normocephalic - Eye Eye exam: Present: normal appearance - ENT ENT exam: Present: mucous membranes moist - Respiratory Respiratory exam: Present: wheezes (diffusely througout), rhonchi (bilaterally), decreased breath sounds (bilateral bases). Absent: respiratory distress, rales, stridor, chest wall tenderness, accessory muscle use - Cardiovascular Cardiovascular Exam: Present: tachycardia, normal heart sounds. Absent: systolic murmur, diastolic murmur, rubs, gallop - Neurological Exam Neurological exam: Present: alert, oriented X3 - Psychiatric Psychiatric exam: Present: normal affect, normal mood - Skin Skin exam: Present: warm, dry, intact ED Course - Reevaluation(s) Reevaluation #1: 07/30/19 17:33 Patient was found to be hypoxic at 93% on room air, patient placed on oxygen and improved to 97%. 07/30/19 19:[address] Eddy, ER attending who recommended to admit the patient to hospitalist service for asthma exacerbation, possible pneumonitis, hypoxia - Consultations Consultation #1: 07/30/19 19:[address] Woodall, hospitalist who recommended to get an ABG and he will evaluate patient in the ER 07/30/19 19:10 Spoke to respiratory therapist and discussed that patient needed an ABG, she states that they are changing shifts and she will tell the next respiratory therapist coming on to perform it 07/30/19 20:[address] Woodall regarding ABG results, he will evaluate patient 07/30/19 21:[address] Montoya, hospitalist, will accept and resume care of patient, will admit to the hospital service, recommended to order COVID-19 order set, lactic acid, blood cultures, advised to give patient ceftriaxone and azithromycin, advised to write bridge orders and to place consult order in for ID to evaluate ED Medical Decision Making - Lab Data Result diagrams: 07/30/19 15:09 07/30/19 21:36 - EKG Data EKG shows normal: sinus rhythm, axis, intervals, QRS complexes, ST-T waves Rate: tachycardia - Radiology Data Radiology results: report reviewed CHEST 2 VIEWS INDICATION: bilateral rib pain/ cough/ shortness of breath. COMPARISON: 04/14/2019 FINDINGS: Support devices: None. Heart: Within normal limits. Pulmonary vasculature: Normal. Lungs/pleura: The lungs are normally expanded and clear. No airspace disease or pleural effusion. No pneumothorax. Additional findings: Multiple healed right rib fractures with more prominent callus than on previous exams. Left lower rib deformities suggest possible acute fractures. IMPRESSION: 1. Possible acute left rib fractures. Recommend chest imaging with rib detail views. 2. No acute cardiopulmonary process. Signer Name: Tom Hollingsworth MD Signed: 07/30/2019 4:25 PM Workstation Name: [id number] Transcribed By: REF Dictated By: TOM HOLLINGSWORTH MD Electronically Authenticated By: TOM HOLLINGSWORTH MD Signed Date/Time: 07/30/19 162 DD/ 1619 TD/TT: CT angio chest INDICATION / CLINICAL INFORMATION: tachycardia, productive cough, rib fx on XR. TECHNIQUE: Axial CT images were obtained after injection of IV contrast using CTA protocol. 3 plane MIP / 3D reconstructions were produced. All CT scans at this location are performed using CT dose reduction for ALARA by means of automated exposure control. COMPARISON: None available. FINDINGS: Evaluation of the lungs demonstrate mild mosaic attenuation. Negative for localized infiltrate or pleural fluid. No mediastinal mass or adenopathy. Imaging of the upper abdomen is unremarkable. No aneurysm, dissection or pulmonary embolus. Old bilateral rib fractures are present. Acute appearing left eighth through 10th posterior lateral rib fractures are present. IMPRESSION: 1. Negative for pulmonary embolus or pneumonia. 2. Mosaic attenuation is nonspecific, but most commonly seen in the setting of air trapping. 3. Acute appearing left eighth through 10th rib fractures. Signer Name: Jeb Zuniga MD Signed: 07/30/2019 6:41 PM Workstation Name: [id number] Transcribed By: ES Dictated By: Jeb Zuniga MD Electronically Authenticated By: Jeb Zuniga MD Signed Date/Time: 07/30/191840 DD/ 35 TD/TT: - Medical Decision Making Patient is a 29-year-old female presents emergency room with complaints of a productive cough that began June 17. She states she has green/brown thick mucus. She states that she has left-sided rib pain after frequent coughing. She states that her voice feels hoarse. Patient states that she has been hospitalized 3 times since February 2019 with pneumonia. She denies any fever, shortness of breath, sore throat, chest pain, sick contact, leg swelling. She has a past medical history of asthma, manic depression, insomnia, GERD. She has an allergy to penicillin and codeine. She states her last menstrual cycle was a week and a half ago. She is a current every day smoker half pack per day. Initial vitals with tachycardia, upon patient getting put in an exam room and placed on a monitor she was hypoxic at 93%, patient placed on 2 L nasal cannula, patient remained tachycardic. on exam pt has wheezing, rhonchi, decreased lung sounds at the bases, pt given neb tx and steroids, continued having wheezing. WBC is 15,000. hcg is negative. CMP is WNL. CXR: 1. Possible acute left rib fractures. Recommend chest imaging with rib detail views. 2. No acute cardiopulmonary process. Due to continued hypoxia and tachycardia CT angio chest was ordered and shows 1. Negative for pulmonary embolus or pneumonia. 2. Mosaic attenuation is nonspecific, but most commonly seen in the setting of air trapping. 3. Acute appearing left eighth through 10th rib fractures. EKG with sinus tachycardia otherwise stable. Spoke to Dr. Woodall, hospitalist who recommended to get an ABG and he will evaluate patient in the ER. spoke with Dr. Woodall regarding ABG results, he will evaluate patient, pao2 is 57. Spoke with Dr. Montoya, hospitalist, will accept and resume care of patient, will admit to the hospital service, recommended to order COVID-19 order set, lactic acid, blood cultures, advised to give patient ceftriaxone and azithromycin, advised to write bridge orders and to place consult order in for ID to evaluate - Differential Diagnosis PNA, PE, status asthmaticus, PTX, empyema, COPD, sleep apnea Critical Care Time: Yes Critical care time in (mins) excluding proc time.: 37 Critical Care Time: Critical care time placed for multiple medications, multiple reexaminations, interpretation of laboratory and diagnostic studies, consultation ED Disposition Clinical Impression: Hypoxia, Productive cough, Suspected COVID-19 virus infection Status asthmaticus Qualifiers: Asthma severity: unspecified severity Asthma persistence: unspecified Qualified Code(s): J45.902 - Unspecified asthma with status asthmaticus Rib fractures Qualifiers: Encounter type: initial encounter Rib fracture type: multiple ribs Fracture type: closed Laterality: left Qualified Code(s): S22.42XA - Multiple fractures of ribs, left side, initial encounter for closed fracture Leukocytosis Qualifiers: Leukocytosis type: unspecified Qualified Code(s): D72.829 - Elevated white blood cell count, unspecified Disposition: OP ADMIT IP TO THIS HOSP Is pt being admited?: Yes Does the pt Need Aspirin: No Condition: Fair Time of Disposition: 20:49 <TOM EDDY - Last Filed: 07/31/19 07:55> ED Review of Systems ROS: Stated complaint: BAD MUCUS Other details as noted in HPI ED Course Vital Signs 07/30/19 07/30/19 07/30/19 14:41 14:45 17:24 Temperature 98.1 F 98.1 F Pulse Rate 122 H 122 H 118 H Respiratory 17 20 24 Rate Blood Pressure 158/98 158/98 O2 Sat by Pulse 97 96 93 Oximetry 07/30/19 07/30/19 07/30/19 19:47 20:17 22:14 Temperature 98.7 F Pulse Rate 118 H Respiratory 16 19 16 Rate Blood Pressure 141/94 O2 Sat by Pulse 92 Oximetry ED Medical Decision Making - Lab Data Result diagrams: 07/31/19 04:50 07/31/19 04:50 Critical care attestation.: If time is entered above; I have spent that time in minutes in the direct care of this critically ill patient, excluding procedure time. ED Disposition Is pt being admited?: Yes Does the pt Need Aspirin: No
--- NOTE | 2019-07-30 16:29 | XRay Report ---
CHEST 2 VIEWS INDICATION: bilateral rib pain/ cough/ shortness of breath. COMPARISON: 04/14/2019 FINDINGS: Support devices: None. Heart: Within normal limits. Pulmonary vasculature: Normal. Lungs/pleura: The lungs are normally expanded and clear. No airspace disease or pleural effusion. No pneumothorax. Additional findings: Multiple healed right rib fractures with more prominent callus than on previous exams. Left lower rib deformities suggest possible acute fractures. IMPRESSION: 1. Possible acute left rib fractures. Recommend chest imaging with rib detail views. 2. No acute cardiopulmonary process. Signer Name: Tom Almodovar MD Signed: 07/30/2019 4:25 PM Workstation Name: [id number]
--- NOTE | 2019-07-30 18:45 | Cat Scan Report ---
CT angio chest INDICATION / CLINICAL INFORMATION: tachycardia, productive cough, rib fx on XR. TECHNIQUE: Axial CT images were obtained after injection of IV contrast using CTA protocol. 3 plane MIP / 3D rec onstructions were produced. All CT scans at this location are performed using CT dose reduction for A ABBE by means of automated exposure control. COMPARISON: None available. FINDINGS: Evaluation of the lungs demonstrate mild mosaic attenuation. Negative for localized infiltrate or ple ural fluid. No mediastinal mass or adenopathy. Imaging of the upper abdomen is unremarkable. No aneurysm, dissection or pulmonary embolus. Old bilateral rib fractures are present. Acute appearing left eighth through 10th posterior lateral r ib fractures are present. IMPRESSION: 1. Negative for pulmonary embolus or pneumonia. 2. Mosaic attenuation is nonspecific, but most commonly seen in the setting of air trapping. 3. Acute appearing left eighth through 10th rib fractures. Signer Name: Jeb Zuniga MD Signed: 07/30/2019 6:41 PM Workstation Name: [id number]
[2019-07-30] MEDS ORDERED: ONDANSETRON 4 MG/2 ML INJ IV ONE (19:01)
[2019-07-30] MEDS ORDERED: MORPHINE 4 MG/1 ML INJ IV ONE (19:01)
[2019-07-30 20:24] LABS: ABG Base Excess -0.1 mmol/L (-2.0-3.0); ABG HCO3 23.7 mmol/L (20.0-26.0); ABG Methemoglobin 0.5 % (0.0-1.5); ABG Oxygen Saturation 91.9 % (95.0-99.0); ABG PCO2 36.1 mm Hg; ABG PH 7.436 pH Units (7.350-7.450); ABG PO2 57.7 mm Hg (80.0-90.0)
[2019-07-30] MEDS ORDERED: cefTRIAXone/NS 1 GM/50 ML 1 GM/50 ML BAG IV ONE (21:19)
[2019-07-30] MEDS ORDERED: AZITHROMYCIN 500 MG in SODIUM CHLORIDE 0.9% 250ML 250 ML IV ONE (21:19)
[2019-07-30] MEDS ORDERED: ALBUTEROL 2.5 MG/3 ML NEBU IH PRN (21:39)
[2019-07-30] MEDS ORDERED: ACETAMINOPHEN 325 MG TAB PO PRN (21:39)
[2019-07-30] MEDS ORDERED: MAGNESIUM HYDROXIDE (MOM) ORAL LIQD UDC PO PRN (21:39)
[2019-07-30] MEDS ORDERED: ONDANSETRON 4 MG/2 ML INJ IV PRN (21:39)
--- NOTE | 2019-07-30 21:59 | History and Physical Report ---
History of Present Illness Date of examination: 07/30/19 Date of admission: 07/30/19 21:20 Chief complaint: Cough History of present illness: 29-year-old white female presenting to the emergency room today complaining of cough which has been ongoing for about 4 weeks. Cough is said to be productive of greenish to brownish sputum. She has had some associated chest discomfort it time she coughs. She also states that her voice feels hoarse with some mild shortness of breath. Patient has known history of asthma. She has been hospitalized on a few occasions over the past few months since February 2019 for pneumonia. She was hospitalized here in March 2019 for pneumonia. She denies any recent travel and denies any sick contacts. She also denies contacts with anyone with COVID-19. She denies any fever or chills, no nausea vomiting, denies any sore throat, denies any headache or dizziness. Upon arrival in the emergency room she was found to be slightly hypoxic and she received some nebulizing treatment and placed on oxygen with some improvement. Past History Past Medical History: GERD, other (Asthma, depression) Past Surgical History: Other Social history: smoking (Smokes about a pack of cigarette daily), alcohol abuse (Quit alcohol abuse recently) Family history: no significant family history Medications and Allergies Allergies Allergy/AdvReac Type Severity Reaction Status Date / Time codeine AdvReac Intermediate Itching Verified 05/10/13 02:46 Penicillins AdvReac Intermediate Itching Verified 05/10/13 02:46 Home Medications Medication Instructions Recorded Confirmed Last Taken Type Albuterol Sulfate [Proair 2 puff IH Q4HR PRN 03/10/19 04/15/19 04/11/19 History Respiclick] Sertraline [Zoloft] 50 mg PO QDAY 03/10/19 04/15/19 07/29/19 History traZODone [Desyrel] 100 mg PO QHS 03/10/19 04/15/19 07/29/19 History ALBUTEROL NEB's [Proventil 0.083% 2.5 mg IH TID PRN #30 neb 04/17/19 Unknown Rx NEBS] Benzonatate [Tessalon Perles] 100 mg PO Q8HR #14 capsule 04/17/19 Unknown Rx Budesonide/Formoterol Fumarate 10.2 gm IH BID #1 hfa.aer.ad 04/17/19 07/30/19 Rx [Symbicort 160-4.5 Mcg Inhaler] Cyclobenzaprine [Flexeril 10 MG 10 mg PO Q8H PRN #14 tablet 04/17/19 Unknown Rx TAB] Esomeprazole Magnesium [NexIUM] 40 mg PO QDAY #30 04/17/19 07/30/19 Rx Montelukast [Singulair] 10 mg PO QHS #30 tablet 04/17/19 07/29/19 Rx Prednisone [predniSONE 10 mg 10 mg PO QDAY #5 tab 04/17/19 Unknown Rx (6-Day Pack, 21 Tabs)] levoFLOXacin [Levaquin TAB] 750 mg PO QDAY #5 tablet 04/17/19 07/31/19 Unknown Rx Active Meds: Active Medications Acetaminophen (Tylenol) 650 mg PO Q4H PRN PRN Reason: Pain MILD(1-3)/Fever >100.5/BALL Albuterol (Proventil) 2.5 mg IH Q4HRT PRN PRN Reason: Shortness Of Breath Azithromycin 500 mg/ Sodium (Chloride) 250 mls @ 250 mls/hr IV ONCE ONE; Protocol Stop: 07/30/19 22:18 Azithromycin 500 mg/ Sodium (Chloride) 250 mls @ 250 mls/hr IV Q24HR@2200 [facility]; Protocol Ceftriaxone Sodium (Rocephin/Ns 2 Gm/100 Ml) 2 gm in 100 mls @ 200 mls/hr IV Q24HR@2100 [facility]; Protocol Magnesium Hydroxide (Milk Of Magnesia) 30 ml PO Q4H PRN PRN Reason: Constipation Ondansetron HCl (Zofran) 4 mg IV Q8H PRN PRN Reason: Nausea And Vomiting Sodium Chloride (Sodium Chloride Flush Syringe 10 Ml) 10 ml IV BID TOI Sodium Chloride (Sodium Chloride Flush Syringe 10 Ml) 10 ml IV PRN PRN PRN Reason: LINE FLUSH Review of Systems Constitutional: no fever, no chills Ears, nose, mouth and throat: no sore throat, no headache, no vertigo Cardiovascular: no chest pain, no palpitations Respiratory: cough, cough with sputum, shortness of breath Gastrointestinal: no abdominal pain, no nausea, no vomiting, no diarrhea Genitourinary Female: no dysuria, no hematuria Musculoskeletal: no neck pain, no low back pain Integumentary: no rash, no pruritis Neurological: no headaches, no confusion Exam - Constitutional Vitals: Temp Pulse Resp BP Pulse Ox 98.1 F 118 H 19 158/98 93 07/30/19 14:45 07/30/19 17:24 07/30/19 20:17 07/30/19 14:45 07/30/19 17:24 General appearance: Present: no acute distress, well-nourished - EENT Eyes: Present: PERRL, EOM intact ENT: hearing intact, clear oral mucosa, dentition normal - Neck Neck: Present: supple, normal ROM - Respiratory Respiratory effort: normal Respiratory: bilateral: diminished - Cardiovascular Rhythm: regular Heart Sounds: Present: S1 & S2 - Extremities Extremities: no ischemia, pulses intact, pulses symmetrical, No edema, Full ROM Peripheral Pulses: within normal limits - Abdominal General gastrointestinal: Present: soft, non-tender, non-distended - Integumentary Integumentary: Present: clear, warm, dry - Musculoskeletal Musculoskeletal: strength equal bilaterally - Psychiatric Psychiatric: appropriate mood/affect, intact judgment & insight, cooperative - Neurologic Neurologic: CNII-XII intact, moves all extremities Results - Labs CBC & Chem 7: 07/31/19 04:50 07/31/19 04:50 Labs: Abnormal lab results 07/30/19 07/30/19 07/30/19 Range/Units 15:09 15:09 20:09 WBC 15.3 H (4.5-11.0) K/mm3 RDW 15.6 H (13.2-15.2) % Plt Count 755 H (140-440) K/mm3 ABG pO2 57.7 L (80.0-90.0) mm Hg ABG O2 Saturation 91.9 L (95.0-99.0) % Oxyhemoglobin 88.2 L (95.0-99.0) % BUN 4 L (7-17) mg/dL Creatinine 0.5 L (0.7-1.2) mg/dL Total Protein 8.3 H (6.3-8.2) g/dL Assessment and Plan - Patient Problems (1) Dyspnea Current Visit: Yes Status: Acute Plan to address problem: Etiology is unclear. Patient has had recurrent hospitalization over the past few months for pneumonia. She is currently being admitted and placed on empiric antibiotics. We will place a consult to pulmonology for further evaluation and recommendation. Patient is also to be ruled out for COVID-19. [address] consult to infectious disease for further evaluation and recommendation. (2) Hypoxia Current Visit: Yes Status: Acute Plan to address problem: Possibly secondary to underlying bronchitis/ pneumonia. Patient placed on oxygen by nasal cannula. Will keep O2 saturation greater or equal to 92%. (3) Rib fractures Current Visit: Yes Status: Acute Qualifiers: Encounter type: initial encounter Rib fracture type: multiple ribs Fracture type: closed Laterality: left Qualified Code(s): S22.42XA - Multiple fractures of ribs, left side, initial encounter for closed fracture Plan to address problem: Possibly secondary to the recurrent coughing. Will place on analgesic medication for pain relief. (4) DVT prophylaxis Current Visit: No Status: Acute Plan to address problem: Patient placed on subcutaneous heparin. (5) Full code status Current Visit: No Status: Acute
[2019-07-30 22:15] LABS: C-Reactive Protein 1.5 mg/dL (0.00-1.30)
[2019-07-30 22:18] VITALS: BP 141/94
[2019-07-31] MEDS ORDERED: KETOROLAC 30 MG/1 ML INJ IV ONE (00:35)
[2019-07-31 05:24] LABS: Basophils # (Auto) 0.1 K/mm3 (0.0-0.1); Basophils % (Auto) 0.3 % (0.0-1.8); Eosinophils % (Auto) 0.1 % (0.0-4.3); Hematocrit 37.6 % (30.3-42.9); Hemoglobin 12.2 gm/dl (10.1-14.3); Lymphocytes # (Auto) 1.7 K/mm3 (1.2-5.4); Lymphocytes % (Auto) 11.2 % (13.4-35.0); Mean Corpuscular HGB Conc 32 % (30-34); Mean Corpuscular Volume 85 fl (79-97); Monocytes # (Auto) 0.3 K/mm3 (0.0-0.8); Monocytes % (Auto) 1.8 % (0.0-7.3); Platelet Count 725 K/mm3 (140-440); Red Cell Distribution Width 15.5 % (13.2-15.2)
[2019-07-31 05:35] LABS: INR 0.98 (0.87-1.13)
[2019-07-31 05:40] LABS: BUN/Creatinine Ratio 18; Blood Urea Nitrogen 11 mg/dL (7-17); Calcium 9.5 mg/dL (8.4-10.2); Hemolysis Index 7
--- NOTE | 2019-07-31 11:54 | Consultation ---
History of Present Illness - Reason for Consult Consult date: 07/31/19 - History of Present Illness Review of Systems: positive in bold print General: + fever, +chills, +malaise Cutaneous: rash, pruritus Head: headaches or injury Eyes: changes in vision, eye pain, double vision Ears: ear pain, ear discharge, ringing or hearing loss Nose: nose bleeding, stuffiness Mouth & throat: bleeding gums, horseness, no dental problems, or swollen glands Neck: no pain, node enlargement/lumps, tyroid enlargement or tenderness Respiratory: +SOB, +cough, +SAUCEDO, wheezing, sputum, hemoptysis, pleuritic chest pain Cardiovascular: chest pain, leg edema, cyanosis, SAUCEDO, orthopnea Musculoskeletal: edema Gastrointestinal: nausea, vomiting, hematemesis, diarrhea, constipation, melena, bright red blood in stools, fecal incontinence, jaundice Genitourinary/Reproductive: frequent urination, dysuria, hematuria, incontinence Neurogical: seizures, headaches, weakness, paresthesias, loss of speech or vision; memory loss, vertigo, tremors, numbness Psychiatric: stable mood; excessive anxiety, sadness or moodiness Exam performed in conjuction with nursings staff due to lack of PPE General appearance: Alert in NAD Eyes: limited due to lack of PPE HENT: Atraumatic; oropharynx limited due to lack of PPE Lungs: michael crackles CV: RRR Abdomen: limited due to lack of PPE Extremities: limited due to lack of PPE Skin: No rash. Psych: Appropriate affect, alert and oriented to person, place and time. Neuro: alert and oriented x 3. Moving all extermities Cultures: Blood culture Influenza Assessment: Recommendations: Continue COVID isolation precautions per [facility] protocol Follow-up COVID testing Check serial Ferritin, LDH, D-Dimer, CRP every 48 hour Will follow Linda Roland MD Infectious Diseases [facility] M [phone] O [phone] Past History Past Medical History: GERD, other (Asthma, depression) Past Surgical History: Other Social history: smoking (Smokes about a pack of cigarette daily), alcohol abuse (Quit alcohol abuse recently) Family history: no significant family history Medications and Allergies Allergies Allergy/AdvReac Type Severity Reaction Status Date / Time codeine AdvReac Intermediate Itching Verified 05/10/13 02:46 Penicillins AdvReac Intermediate Itching Verified 05/10/13 02:46 Home Medications Medication Instructions Recorded Confirmed Last Taken Type Albuterol Sulfate [Proair 2 puff IH Q4HR PRN 03/10/19 04/15/19 04/11/19 History Respiclick] Sertraline [Zoloft] 50 mg PO QDAY 03/10/19 04/15/19 07/29/19 History traZODone [Desyrel] 100 mg PO QHS 03/10/19 04/15/19 07/29/19 History ALBUTEROL NEB's [Proventil 0.083% 2.5 mg IH TID PRN #30 neb 04/17/19 Unknown Rx NEBS] Benzonatate [Tessalon Perles] 100 mg PO Q8HR #14 capsule 04/17/19 Unknown Rx Budesonide/Formoterol Fumarate 10.2 gm IH BID #1 hfa.aer.ad 04/17/19 07/30/19 Rx [Symbicort 160-4.5 Mcg Inhaler] Cyclobenzaprine [Flexeril 10 MG 10 mg PO Q8H PRN #14 tablet 04/17/19 Unknown Rx TAB] Esomeprazole Magnesium [NexIUM] 40 mg PO QDAY #30 04/17/19 07/30/19 Rx Montelukast [Singulair] 10 mg PO QHS #30 tablet 04/17/19 07/29/19 Rx Prednisone [predniSONE 10 mg 10 mg PO QDAY #5 tab 04/17/19 Unknown Rx (6-Day Pack, 21 Tabs)] levoFLOXacin [Levaquin TAB] 750 mg PO QDAY #5 tablet 04/17/19 07/31/19 Unknown Rx Active Meds: Active Medications Acetaminophen (Tylenol) 650 mg PO Q4H PRN PRN Reason: Pain MILD(1-3)/Fever >100.5/BALL Last Admin: 07/31/19 08:55 Dose: 650 mg Documented by: Albuterol (Proventil) 2.5 mg IH Q4HRT PRN PRN Reason: Shortness Of Breath Azithromycin (Zithromax) 500 mg PO QHS TOI Stop: 08/03/19 22:01 Ceftriaxone Sodium (Rocephin/Ns 2 Gm/100 Ml) 2 gm in 100 mls @ 200 mls/hr IV Q24HR@2100 [facility]; Protocol Magnesium Hydroxide (Milk Of Magnesia) 30 ml PO Q4H PRN PRN Reason: Constipation Ondansetron HCl (Zofran) 4 mg IV Q8H PRN PRN Reason: Nausea And Vomiting Sodium Chloride (Sodium Chloride Flush Syringe 10 Ml) 10 ml IV BID TOI Last Admin: 07/31/19 09:37 Dose: 10 ml Documented by: Sodium Chloride (Sodium Chloride Flush Syringe 10 Ml) 10 ml IV PRN PRN PRN Reason: LINE FLUSH Physical Examination - Constitutional Vitals: Vital Signs Temp Pulse Resp BP Pulse Ox 98.7 F 118 H 16 141/94 92 07/30/19 22:14 07/30/19 22:14 07/30/19 22:14 07/30/19 22:14 07/30/19 22:14 Temperature -Last 24 Hours Temperature 98.7 F Temperature 98.1 F Temperature 98.1 F Results - Labs CBC & Chem 7: 07/31/19 04:50 07/31/19 04:50 Labs: Abnormal lab results 07/30/19 07/30/19 07/30/19 Range/Units 15:09 15:09 20:09 WBC 15.3 H (4.5-11.0) K/mm3 RDW 15.6 H (13.2-15.2) % Plt Count 755 H (140-440) K/mm3 Lymph % (Auto) (13.4-35.0) % Seg Neutrophils % (40.0-70.0) % Seg Neutrophils # (1.8-7.7) K/mm3 D-Dimer (0-234) ng/mlDDU ABG pO2 57.7 L (80.0-90.0) mm Hg ABG O2 Saturation 91.9 L (95.0-99.0) % Oxyhemoglobin 88.2 L (95.0-99.0) % Sodium (137-145) mmol/L Chloride (98-107) mmol/L BUN 4 L (7-17) mg/dL Creatinine 0.5 L (0.7-1.2) mg/dL Glucose (65-100) mg/dL Lactate Dehydrogenase (91-180) units/L C-Reactive Protein (0.00-1.30) mg/dL Total Protein 8.3 H (6.3-8.2) g/dL 07/30/19 07/30/19 07/31/19 Range/Units 21:36 21:36 04:50 WBC 14.9 H (4.5-11.0) K/mm3 RDW 15.5 H (13.2-15.2) % Plt Count 725 H (140-440) K/mm3 Lymph % (Auto) 11.2 L (13.4-35.0) % Seg Neutrophils % 86.6 H (40.0-70.0) % Seg Neutrophils # 12.9 H (1.8-7.7) K/mm3 D-Dimer 482.73 H (0-234) ng/mlDDU ABG pO2 (80.0-90.0) mm Hg ABG O2 Saturation (95.0-99.0) % Oxyhemoglobin (95.0-99.0) % Sodium (137-145) mmol/L Chloride (98-107) mmol/L BUN (7-17) mg/dL Creatinine (0.7-1.2) mg/dL Glucose 181 H (65-100) mg/dL Lactate Dehydrogenase 248 H (91-180) units/L C-Reactive Protein 1.50 H (0.00-1.30) mg/dL Total Protein (6.3-8.2) g/dL 07/31/19 Range/Units 04:50 WBC (4.5-11.0) K/mm3 RDW (13.2-15.2) % Plt Count (140-440) K/mm3 Lymph % (Auto) (13.4-35.0) % Seg Neutrophils % (40.0-70.0) % Seg Neutrophils # (1.8-7.7) K/mm3 D-Dimer (0-234) ng/mlDDU ABG pO2 (80.0-90.0) mm Hg ABG O2 Saturation (95.0-99.0) % Oxyhemoglobin (95.0-99.0) % Sodium 135 L (137-145) mmol/L Chloride 96.5 L (98-107) mmol/L BUN (7-17) mg/dL Creatinine 0.6 L (0.7-1.2) mg/dL Glucose 153 H (65-100) mg/dL Lactate Dehydrogenase (91-180) units/L C-Reactive Protein (0.00-1.30) mg/dL Total Protein (6.3-8.2) g/dL
--- NOTE | 2019-07-31 13:27 | Consultation ---
History of Present Illness Consult date: 07/31/19 Requesting physician: PARISH BARROS Reason for consult: dyspnea History of present illness: 29 y/o female with known asthma, presents to the ED with cough productive of green and brown sputum, dyspnea and pain with coughing. CXR revealed rib fractures. CT of chest done which showed some areas consistent with air tra pping but no distinct infiltrate or consolidation. White count elevated on admit, but no fever. lymph count was normal. Inflammatory markers marginally elevated. Given pandemic, ED and IMS felt appropriate to rule out of COVID 19. Was swabbed sometime this morning but results not back yet. Past History Past Medical History: GERD, other (Asthma, depression) Past Surgical History: Other Social history: smoking (Smokes about a pack of cigarette daily), alcohol abuse (Quit alcohol abuse recently) Family history: no significant family history Medications and Allergies Allergies Allergy/AdvReac Type Severity Reaction Status Date / Time codeine AdvReac Intermediate Itching Verified 05/10/13 02:46 Penicillins AdvReac Intermediate Itching Verified 05/10/13 02:46 Home Medications Medication Instructions Recorded Confirmed Last Taken Type Albuterol Sulfate [Proair 2 puff IH Q4HR PRN 03/10/19 04/15/19 04/11/19 History Respiclick] Sertraline [Zoloft] 50 mg PO QDAY 03/10/19 04/15/19 07/29/19 History traZODone [Desyrel] 100 mg PO QHS 03/10/19 04/15/19 07/29/19 History ALBUTEROL NEB's [Proventil 0.083% 2.5 mg IH TID PRN #30 neb 04/17/19 Unknown Rx NEBS] Benzonatate [Tessalon Perles] 100 mg PO Q8HR #14 capsule 04/17/19 Unknown Rx Budesonide/Formoterol Fumarate 10.2 gm IH BID #1 hfa.aer.ad 04/17/19 07/30/19 Rx [Symbicort 160-4.5 Mcg Inhaler] Cyclobenzaprine [Flexeril 10 MG 10 mg PO Q8H PRN #14 tablet 04/17/19 Unknown Rx TAB] Esomeprazole Magnesium [NexIUM] 40 mg PO QDAY #30 04/17/19 07/30/19 Rx Montelukast [Singulair] 10 mg PO QHS #30 tablet 04/17/19 07/29/19 Rx Prednisone [predniSONE 10 mg 10 mg PO QDAY #5 tab 04/17/19 Unknown Rx (6-Day Pack, 21 Tabs)] levoFLOXacin [Levaquin TAB] 750 mg PO QDAY #5 tablet 04/17/19 07/31/19 Unknown Rx Active Meds: Active Medications Acetaminophen (Tylenol) 650 mg PO Q4H PRN PRN Reason: Pain MILD(1-3)/Fever >100.5/BALL Last Admin: 07/31/19 08:55 Dose: 650 mg Documented by: Albuterol (Proventil) 2.5 mg IH Q4HRT PRN PRN Reason: Shortness Of Breath Azithromycin (Zithromax) 500 mg PO QHS [facility] Stop: 08/03/19 22:01 Budesonide (Pulmicort) 0.5 mg IH Q12HRT [facility] Ceftriaxone Sodium (Rocephin/Ns 2 Gm/100 Ml) 2 gm in 100 mls @ 200 mls/hr IV Q24HR@2100 [facility]; Protocol Magnesium Hydroxide (Milk Of Magnesia) 30 ml PO Q4H PRN PRN Reason: Constipation Ondansetron HCl (Zofran) 4 mg IV Q8H PRN PRN Reason: Nausea And Vomiting Last Admin: 07/31/19 11:05 Dose: 4 mg Documented by: Sodium Chloride (Sodium Chloride Flush Syringe 10 Ml) 10 ml IV BID [facility] Last Admin: 07/31/19 09:37 Dose: 10 ml Documented by: Sodium Chloride (Sodium Chloride Flush Syringe 10 Ml) 10 ml IV PRN PRN PRN Reason: LINE FLUSH Review of Systems All systems: negative Physical Examination Vital signs: Vital Signs Temp Pulse Resp BP Pulse Ox 98.1 F 122 H 17 158/98 97 07/30/19 14:41 07/30/19 14:41 07/30/19 14:41 07/30/19 14:41 07/30/19 14:41 General appearance: no acute distress, other (morbidly obese) Eyes: non-icteric Neck: other (large in circumference) Effort: normal Ascultation: Bilateral: diminished breath sounds (secondary to body habitus), wheezes (scant wheeze at very end of expiration) Results - Laboratory Findings CBC and BMP: 07/31/19 04:50 07/31/19 04:50 ABG ABG pH 7.436 pH Units (7.350-7.450) 07/30/19 20:09 ABG pCO2 36.1 mm Hg 07/30/19 20:09 ABG pO2 57.7 mm Hg (80.0-90.0) L 07/30/19 20:09 ABG O2 Saturation 91.9 % (95.0-99.0) L 07/30/19 20:09 PT/INR, D-dimer PT 12.8 Sec. (12.2-14.9) 07/31/19 04:50 INR 0.98 (0.87-1.13) 07/31/19 04:50 D-Dimer 482.73 ng/mlDDU (0-234) H 07/30/19 21:36 Abnormal lab findings: Abnormal Labs 07/30/19 07/30/19 07/30/19 15:09 15:09 20:09 WBC 15.3 H RDW 15.6 H Plt Count 755 H Lymph % (Auto) Seg Neutrophils % Seg Neutrophils # D-Dimer ABG pO2 57.7 L ABG O2 Saturation 91.9 L Oxyhemoglobin 88.2 L Sodium Chloride BUN 4 L Creatinine 0.5 L Glucose Lactate Dehydrogenase C-Reactive Protein Total Protein 8.3 H 07/30/19 07/30/19 07/31/19 21:36 21:36 04:50 WBC 14.9 H RDW 15.5 H Plt Count 725 H Lymph % (Auto) 11.2 L Seg Neutrophils % 86.6 H Seg Neutrophils # 12.9 H D-Dimer 482.73 H ABG pO2 ABG O2 Saturation Oxyhemoglobin Sodium Chloride BUN Creatinine Glucose 181 H Lactate Dehydrogenase 248 H C-Reactive Protein 1.50 H Total Protein 07/31/19 04:50 WBC RDW Plt Count Lymph % (Auto) Seg Neutrophils % Seg Neutrophils # D-Dimer ABG pO2 ABG O2 Saturation Oxyhemoglobin Sodium 135 L Chloride 96.5 L BUN Creatinine 0.6 L Glucose 153 H Lactate Dehydrogenase C-Reactive Protein Total Protein - Diagnostic Findings Chest x-ray: image reviewed CT scan - chest: image reviewed Assessment and Plan 29 y/o female, most likely with acute bronchitis causing dyspnea on exertion 1. Smoking cessation 2. Weight loss 3. Agree with IV abx therapy. The brown mucous is likely old. She does have some subtle areas of bronchiectasis but they are predominantly in the upper lobes 4. Added BID pulmicort 5. Continue PRN nebs 6. Suspicion is higher for a bacterial infection as oppose to COVJOSEF 19 but await swab results. Continue isolation until then 7. Hold on steroids for now 8. Needs incentive luis alberto and pain control for rib fractures.
[2019-07-31] MEDS ORDERED: BUDESONIDE 0.5 MG/2 ML NEBU IH SCH (20:00)
[2019-07-31] MEDS ORDERED: cefTRIAXone/NS 2 GM/100 ML 2 GM/100 ML BAG IV SCH (21:00)
[2019-07-31] MEDS ORDERED: AZITHROMYCIN 250 MG TAB PO SCH (22:00)
[2019-07-31] MEDS ORDERED: AZITHROMYCIN 500 MG in SODIUM CHLORIDE 0.9% 250ML 250 ML IV SCH (22:00)
--- NOTE | 2019-08-03 13:51 | Discharge Summary ---
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 Patient has known history of asthma. She has been hospitalized on a few occasions over the past few months since February 2019 for pneumonia. Upon arrival in the emergency room she was found to be slightly hypoxic and she received some nebulizing treatment and placed on oxygen with some improvement. CXR revealed rib fractures. CT of chest done which showed some areas consistent with air trapping but no distinct infiltrate or consolidation. White count elevated on admit, but no fever. lymph count was normal. Inflammatory markers marginally elevated. Her covid19 test was ordered. Patient was given nebulizer breathing treatment and her symptom started to improve. Patient then decided to leave A. Discharge diagnosis: Acute hypoxic respiratory failure, due to asthma Acute asthma exacerbation Suspected covid 19 tobacco abuse SIRS, due to asthma Physical exam: General appearance: no acute distress, other (morbidly obese) Eyes: non-icteric Neck: other (large in circumference) Effort: normal Ascultation: Bilateral: diminished breath sounds (secondary to body habitus), wheezes (scant wheeze at very end of expiration) Disposition: DC-07 LEFT AGAINST MED ADVICE Time spent for discharge: 34 minutes Core Measure Documentation - Palliative Care Palliative Care/ Comfort Measures: Not Applicable - Core Measures Any of the following diagnoses?: none Exam - Constitutional Vitals: Temp Pulse Resp BP Pulse Ox 98.7 F 118 H 16 141/94 94 07/30/19 22:14 07/30/19 22:14 07/30/19 22:14 07/30/19 22:14 07/31/19 12:00 Plan Follow up with: MARGE NINO MD [Primary Care Provider] - 3-5 Days
== END 2019-07-31 15:30 | disposition left against medical advice (07) | DRG 202 ==
LOC: ED 14:33 → 4A 21:20 → IMCU 23:11
PROVIDERS: ADMIT Internal Medicine Geriatric Medicine; ATTEND Internal Medicine
PROC: 4A033R1 Measurement of Arterial Saturation, Peripheral, Percutaneous Approach (ICD-10-PCS; principal; 2019-07-30)
DX: J20.9 Acute bronchitis, unspecified (principal); J45.902 Unspecified asthma with status asthmaticus; S22.42XA Multiple fractures of ribs, left side, initial encounter for closed fracture; F33.9 Major depressive disorder, recurrent, unspecified; D72.829 Elevated white blood cell count, unspecified; R09.02 Hypoxemia; Z71.6 Tobacco abuse counseling; F17.210 Nicotine dependence, cigarettes, uncomplicated; K21.9 Gastro-esophageal reflux disease without esophagitis; J45.909 Unspecified asthma, uncomplicated; G47.00 Insomnia, unspecified; Z88.0 Allergy status to penicillin; Z88.6 Allergy status to analgesic agent; X58.XXXA Exposure to other specified factors, initial encounter; Y93.89 Activity, other specified; Y92.89 Other specified places as the place of occurrence of the external cause; Y99.8 Other external cause status
CPT/HCPCS: 36415; 71046; 71275; 80048; 80053; 82140; 82728; 82803; 82947; 83615; 84145; 84703; 85025; 85027; 85379; 85610; 86140; 87040; 93005; 99406; G0378; J0456; J0696; J1100; J1885; J2270; J2405; J7050; Q9967; U0003

== ENCOUNTER 2019-08-11 15:09 | Inpatient (IN) | payer OTHER, SELFPAY ==
[2019-08-11] MEDS ORDERED: ALBUTEROL 2.5 MG/3 ML NEBU IH ONE (15:18)
[2019-08-11] MEDS ORDERED: IPRATROPIUM 0.02% NEBU 2.5 ML IH ONE (15:18)
[2019-08-11] MEDS ORDERED: dexAMETHasone 20 MG/5 ML VIAL IV ONE (15:18)
[2019-08-11] MEDS ORDERED: MAGNESIUM SULFATE 2 GM/50 ML BAG IV ONE (15:19)
--- NOTE | 2019-08-11 15:50 | Emergency Department Report ---
ED Shortness of Breath HPI - General Chief Complaint: Dyspnea/Respdistress Stated Complaint: VIN Time Seen by Provider: 08/11/19 15:12 Source: patient, EMS Mode of arrival: Stretcher Limitations: No Limitations - History of Present Illness Initial Comments: This is a 29-year-old female that presents to the ED with c/o of SOB and cough x several days. HX includes PNA and asthma. Was recently treated with antibiotics for pneumonia. Patient stated has some chest tightness. Describes cough as mucus production. Patient was admitted and left AMA during the previous visit. Patient denies any hemoptysis, fever, chills, nausea, vomiting, headache, stiff neck, numbness, tingling, abdominal pain. Patient denies pleuritic chest pain. Patient denies any recent travels or long car rides. Patient denies any recent surgeries or any sick contacts. Patient denies any drug allergies. Allergies includes codeine and PCN. MD Complaint: shortness of breath, cough -: days(s) Consistency: constant Improves With: nothing Worsens With: nothing Context: recent URI Associated Symptoms: cough, sputum production, other (SOB) - Related Data Home Medications Medication Instructions Recorded Confirmed Last Taken Albuterol Sulfate [Proair 2 puff IH Q4HR PRN 03/10/19 04/15/19 04/11/19 Respiclick] Sertraline [Zoloft] 50 mg PO QDAY 03/10/19 04/15/19 07/29/19 traZODone [Desyrel] 100 mg PO QHS 03/10/19 04/15/19 07/29/19 Previous Rx's Medication Instructions Recorded Last Taken Type ALBUTEROL NEB's [Proventil 0.083% 2.5 mg IH TID PRN #30 neb 04/17/19 Unknown Rx NEBS] Benzonatate [Tessalon Perles] 100 mg PO Q8HR #14 capsule 04/17/19 Unknown Rx Budesonide/Formoterol Fumarate 10.2 gm IH BID #1 hfa.aer.ad 04/17/19 07/30/19 Rx [Symbicort 160-4.5 Mcg Inhaler] Cyclobenzaprine [Flexeril 10 MG 10 mg PO Q8H PRN #14 tablet 04/17/19 Unknown Rx TAB] Esomeprazole Magnesium [NexIUM] 40 mg PO QDAY #30 04/17/19 07/30/19 Rx Montelukast [Singulair] 10 mg PO QHS #30 tablet 04/17/19 07/29/19 Rx Prednisone [predniSONE 10 mg 10 mg PO QDAY #5 tab 04/17/19 Unknown Rx (6-Day Pack, 21 Tabs)] levoFLOXacin [Levaquin TAB] 750 mg PO QDAY #5 tablet 04/17/19 Unknown Rx Allergies Allergy/AdvReac Type Severity Reaction Status Date / Time codeine AdvReac Intermediate Itching Verified 05/10/13 02:46 Penicillins AdvReac Intermediate Itching Verified 05/10/13 02:46 ED Review of Systems ROS: Stated complaint: VIN Other details as noted in HPI Constitutional: denies: chills, fever Eyes: denies: eye pain, eye discharge, vision change ENT: congestion. denies: ear pain, throat pain Respiratory: cough, shortness of breath, wheezing Cardiovascular: denies: chest pain, palpitations Endocrine: no symptoms reported Gastrointestinal: denies: abdominal pain, nausea, diarrhea Genitourinary: denies: urgency, dysuria, discharge Musculoskeletal: denies: back pain, joint swelling, arthralgia Skin: denies: rash, lesions Neurological: denies: headache, weakness, paresthesias Psychiatric: denies: anxiety, depression Hematological/Lymphatic: denies: easy bleeding, easy bruising ED Past Medical Hx - Past Medical History Previous Medical History?: Yes Hx Hypertension: No Hx Congestive Heart Failure: No Hx Diabetes: No Hx Deep Vein Thrombosis: No Hx Renal Disease: No Hx Sickle Cell Disease: No Hx Seizures: No Hx Psychiatric Treatment: Yes (Depression, anxiety) Hx Asthma: Yes Hx COPD: No Hx HIV: No - Surgical History Past Surgical History?: No - Social History Smoking Status: Former Smoker Substance Use Type: None - Medications Home Medications: Home Medications Medication Instructions Recorded Confirmed Last Taken Type Albuterol Sulfate [Proair 2 puff IH Q4HR PRN 03/10/19 04/15/19 04/11/19 History Respiclick] Sertraline [Zoloft] 50 mg PO QDAY 03/10/19 04/15/19 07/29/19 History traZODone [Desyrel] 100 mg PO QHS 03/10/19 04/15/1907/28/20 History ALBUTEROL NEB's [Proventil 0.083% 2.5 mg IH TID PRN #30 neb 04/17/19 Unknown Rx NEBS] Benzonatate [Tessalon Perles] 100 mg PO Q8HR #14 capsule 04/17/19 Unknown Rx Budesonide/Formoterol Fumarate 10.2 gm IH BID #1 hfa.aer.ad 04/17/19 07/30/19 Rx [Symbicort 160-4.5 Mcg Inhaler] Cyclobenzaprine [Flexeril 10 MG 10 mg PO Q8H PRN #14 tablet 04/17/19 Unknown Rx TAB] Esomeprazole Magnesium [NexIUM] 40 mg PO QDAY #30 04/17/19 07/30/19 Rx Montelukast [Singulair] 10 mg PO QHS #30 tablet 04/17/19 07/29/19 Rx Prednisone [predniSONE 10 mg 10 mg PO QDAY #5 tab 04/17/19 Unknown Rx (6-Day Pack, 21 Tabs)] levoFLOXacin [Levaquin TAB] 750 mg PO QDAY #5 tablet 04/17/19 07/31/19 Unknown Rx ED Physical Exam - General Limitations: No Limitations General appearance: alert, in no apparent distress - Head Head exam: Present: atraumatic, normocephalic - Eye Eye exam: Present: normal appearance - Neck Neck exam: Present: normal inspection, full ROM. Absent: tenderness, meningismus, lymphadenopathy - Respiratory Respiratory exam: Present: wheezes, decreased breath sounds. Absent: respiratory distress, rales, rhonchi, stridor, chest wall tenderness, accessory muscle use, prolonged expiratory - Cardiovascular Cardiovascular Exam: Present: regular rate, normal rhythm, tachycardia, normal heart sounds. Absent: irregular rhythm, systolic murmur, diastolic murmur, rubs, gallop - GI/Abdominal GI/Abdominal exam: Present: soft, normal bowel sounds. Absent: distended, tenderness, guarding, rebound, rigid, diminished bowel sounds - Extremities Exam Extremities exam: Present: normal inspection, full ROM - Back Exam Back exam: Present: normal inspection, full ROM - Neurological Exam Neurological exam: Present: alert, oriented X3, normal gait - Psychiatric Psychiatric exam: Present: normal affect, normal mood - Skin Skin exam: Present: warm, dry, intact, normal color. Absent: rash ED Course Vital Signs 08/11/19 08/11/19 08/11/19 15:13 15:24 15:30 Temperature 98.1 F Pulse Rate 123 H Respiratory 30 H Rate Blood Pressure 154/90 152/96 Blood Pressure 152/96 [Left] O2 Sat by Pulse 97 97 97 Oximetry 08/11/19 08/11/19 16:00 16:50 Temperature Pulse Rate 116 H Respiratory 30 H 33 H Rate Blood Pressure 164/103 Blood Pressure [Left] O2 Sat by Pulse 97 98 Oximetry - Reevaluation(s) Reevaluation #1: 08/11/19 15:49 Patient is speaking in full sentences with SOB. Reevaluation #2: 08/11/19 17:15 Patient still exhibiting shortness of breath. Patient is admitted with hospitalist Dr. Gee. Patient is currently stable otherwise. - Consultations Consultation #1: 08/11/19 17:16 Patient has been consulted with Dr. Marlen V about patient history, physical exam, and labs and accepts patient to services. ED Medical Decision Making - Lab Data Result diagrams: 08/11/19 15:42 08/11/19 15:42 - EKG Data 08/11/19 17:19 Sinus tachycardia [address] abnormalities. Reviewed and signed by Monie Ferrell. - Medical Decision Making This is a 29-year-old female that presents with hypoxia, asthma exacerbation and possible sepsis. Patient is stable and was examined by me. Patient was resuscitated in ER but patient still presents with wheezing and shortness of breath. Patient is admitted with hospitalist for further evaluation and treatment. At time of d admission e, the patient does not seem toxic or ill in appearance. No acute signs of distress noted. Patient agrees to admission treatment plan of care. No further questions noted by the patient. Critical care attestation.: If time is entered above; I have spent that time in minutes in the direct care of this critically ill patient, excluding procedure time. ED Disposition Clinical Impression: Hypoxia, Suspected COVID-19 virus infection Leukocytosis Qualifiers: Leukocytosis type: unspecified Qualified Code(s): D72.829 - Elevated white blood cell count, unspecified Dyspnea Qualifiers: Dyspnea type: shortness of breath Qualified Code(s): R06.02 - Shortness of breath Sepsis Qualifiers: Sepsis type: sepsis due to unspecified organism Sepsis acute organ dysfunction status: unspecified Qualified Code(s): A41.9 - Sepsis, unspecified organism Asthma exacerbation Qualifiers: Asthma severity: severe Asthma persistence: persistent Qualified Code(s): J45.51 - Severe persistent asthma with (acute) exacerbation Disposition: OP ADMIT IP TO THIS HOSP Is pt being admited?: Yes Condition: Stable Referrals: PRIMARY CARE,MD [Primary Care Provider] - 3-5 Days
[2019-08-11 15:53] LABS: Hematocrit 38.8 % (30.3-42.9); Hemoglobin 12.5 gm/dl (10.1-14.3); Mean Corpuscular HGB Conc 32 % (30-34); Mean Corpuscular Volume 85 fl (79-97); Platelet Count 784 K/mm3 (140-440); Red Blood Count 4.55 M/mm3 (3.65-5.03); Red Cell Distribution Width 15.5 % (13.2-15.2)
--- NOTE | 2019-08-11 15:56 | XRay Report ---
CHEST 1 VIEW INDICATION / CLINICAL INFORMATION: MAIN: sob/cough/wheezing X 3 DAYS. COMPARISON: Chest radiograph and CT 07/30/2019 FINDINGS: SUPPORT DEVICES: None. HEART / MEDIASTINUM: No significant abnormality. LUNGS / PLEURA: No significant pulmonary or pleural abnormality. No pneumothorax. Multiple old right-sided rib fractures noted. IMPRESSION: No acute finding. Signer Name: Rusty Negron MD Signed: 08/11/2019 3:52 PM Workstation Name: [id number]
[2019-08-11] MEDS ORDERED: SODIUM CHLORIDE 0.9% 1000 ML IV SOLN IV ONE (16:03)
[2019-08-11 16:14] LABS: Alanine Aminotransferase 16 units/L (7-56); BUN/Creatinine Ratio 8; Blood Urea Nitrogen 3 mg/dL (7-17); Hemolysis Index 0
[2019-08-11 16:51] LABS: RBC Morphology Normal; Total Cells Counted 100
[2019-08-11] MEDS ORDERED: AZITHROMYCIN 500 MG in SODIUM CHLORIDE 0.9% 250ML 250 ML IV SCH (17:00)
[2019-08-11 17:55] LABS: ABG Base Excess -2.7 mmol/L (-2.0-3.0); ABG HCO3 22.5 mmol/L (20.0-26.0); ABG Methemoglobin 0.5 % (0.0-1.5); ABG Oxygen Saturation 97.2 % (95.0-99.0); ABG PCO2 40.4 mm Hg; ABG PH 7.363 pH Units (7.350-7.450); ABG PO2 95.9 mm Hg (80.0-90.0)
[2019-08-11 18:24] LABS: C-Reactive Protein 9.9 mg/dL (0.00-1.30)
[2019-08-11] MEDS ORDERED: SODIUM CHLORIDE 0.9% 1000 ML 1,000 ML ONE (18:46)
[2019-08-11] MEDS ORDERED: KETOROLAC 30 MG/1 ML INJ IV ONE (19:13)
[2019-08-11 19:17] LABS: Bilirubin,Urine NEG (Negative); Blood,Urine NEG (Negative); Color,Urine Straw (Yellow); Mucus,Urine FEW /HPF; Protein,Urine <15 mg/dL mg/dL (Negative); Urobilinogen,Urine < 2.0 mg/dL (<2.0); WBC,Urine < 1.0 /HPF (0.0-6.0)
[2019-08-11] MEDS ORDERED: KETOROLAC 30 MG/1 ML INJ ONE (19:38)
[2019-08-11] MEDS ORDERED: NON-FORMULARY EACH (Albuterol Sulfate [Proair Respiclick] 2 PUFF) IH PRN (21:49)
--- NOTE | 2019-08-11 21:49 | Event Note ---
Date: 08/11/19 See H/p in reports Chest pain r/o HI Syncope
[2019-08-11] MEDS ORDERED: ONDANSETRON 4 MG/2 ML INJ IV PRN (21:50)
[2019-08-11] MEDS ORDERED: IBUPROFEN 600 MG TAB PO PRN (21:50)
[2019-08-11] MEDS ORDERED: HYDROmorphone 1 MG/1 ML INJ IV PRN (21:50)
[2019-08-11] MEDS ORDERED: ACETAMINOPHEN 325 MG TAB PO PRN (21:50)
[2019-08-11] MEDS ORDERED: METOCLOPRAMIDE 10 MG/2 ML INJ IV PRN (21:50)
[2019-08-11] MEDS ORDERED: ALBUTEROL 2.5 MG/3 ML NEBU IH PRN ×2 (21:55→22:20)
[2019-08-11] MEDS ORDERED: IPRATROPIUM/ALBUTEROL SULFATE 3 ML AMPUL.NEB IH PRN (21:56)
[2019-08-11] MEDS ORDERED: traZODone 100 MG TAB PO SCH (22:00)
[2019-08-11] MEDS: FAMOTIDINE 20 MG/2 ML INJ IV SCH (22:56)
[2019-08-11] MEDS: HEPARIN 5,000 UNIT/1 ML VIAL SUB-Q SCH (22:57)
[2019-08-11] MEDS: methylPREDNISolone Sod Succinate 125 MG/2 ML INJ IV SCH (22:57)
[2019-08-12] MEDS: oxyCODONE /ACETAMINOPHEN 5-325MG TAB PO PRN ×2 (03:55→16:37)
[2019-08-12] MEDS: methylPREDNISolone Sod Succinate 125 MG/2 ML INJ IV SCH ×2 (06:12→13:51)
--- NOTE | 2019-08-12 08:11 | Event Note ---
Date: 08/11/19 See H/p in reports Asthma exacerbation Resp failure
[2019-08-12 08:40] LABS: Hematocrit 37.4 % (30.3-42.9); Hemoglobin 12.4 gm/dl (10.1-14.3); Mean Corpuscular HGB Conc 33 % (30-34); Mean Corpuscular Volume 86 fl (79-97); Platelet Count 656 K/mm3 (140-440); Red Blood Count 4.37 M/mm3 (3.65-5.03); Red Cell Distribution Width 15.4 % (13.2-15.2)
--- NOTE | 2019-08-12 08:42 | History and Physical Report ---
CHIEF COMPLAINT: Increasing wheezing and shortness of breath for 2-3 days. HISTORY OF PRESENT ILLNESS: A 29-year-old female with history of asthma, comes in for increasing shortness of breath and cough for 3 days. Cough productive of mucoid sputum. She was recently treated with antibiotics for pneumonia, had cough productive of mucoid sputum. She was recently admitted and she went AMA. Denies any hemoptysis, fever, chills, nausea. Denies pleuritic chest pain. Denies any exposure to coronavirus. No diaphoresis. PAST MEDICAL HISTORY: Significant for asthma. No seizures. No congestive heart failure. PAST SURGICAL HISTORY: None. SOCIAL HISTORY: Non smoker FAMILY HISTORY: Hypertension. CURRENT MEDICATIONS: On the chart. REVIEW OF SYSTEMS: Significant for increasing wheezing and shortness of breath and cough productive of mucoid sputum. Otherwise, negative. A 14-point review of systems done. PHYSICAL EXAMINATION: GENERAL: Young female, in moderate respiratory distress. The patient is tachypneic. VITAL SIGNS: Respiratory rate of 30, oxygen sats of 97%, blood pressure is 154/90, temperature is 98.1. HEENT: Unremarkable. Pupils are equal and reactive. NECK: Supple, no lymphadenopathy, no thyromegaly. LUNGS: Increasing rhonchi and wheezing bilaterally. Accessory muscles of respiration are prominent. Accessory muscles of neck are prominent. CARDIOVASCULAR: S1, S2 heard. No gallop, no murmur, no rub. Apical impulse in left fifth intercostal space and midclavicular line. ABDOMEN: Soft and benign. No hepatosplenomegaly, no guarding, no rigidity. Hernial orifices are normal. EXTREMITIES: Good pedal pulses. No pedal edema. CENTRAL NERVOUS SYSTEM: Alert and oriented x 4, nonfocal exam. SKIN: Normal. LABORATORY DATA: Significant for white count of 23,900, H and H is 12.5 and 38.8, platelet count is 784,000. Electrolytes normal. Urinalysis is normal. Chest x-ray, no acute findings. ASSESSMENT AND PLAN: 1. Acute respiratory failure consistent with severe tachypnea and tachycardia. IV antibiotics, IV Solu-Medrol and nebulizer treatments. 2. Asthma exacerbation. The patient initiated on IV steroids, IV antibiotics and nebulizer treatments. 3. Deep venous thrombosis prophylaxis, heparin 5000 q. 12. JOB# [id number] JENNIFER/FUENTES FRAZIER
[2019-08-12 09:00] LABS: Alanine Aminotransferase 15 units/L (7-56); Albumin 3.9 g/dL (3.9-5); BUN/Creatinine Ratio 10; Blood Urea Nitrogen 5 mg/dL (7-17); Calcium 9.7 mg/dL (8.4-10.2); Hemolysis Index 0
[2019-08-12 10:06] LABS: Basophils % (Manual) 0 % (0.0-1.8); Eosinophils % (Manual) 0 % (0.0-4.3); Monocytes % (Manual) 0 % (0.0-7.3); Total Cells Counted 100; Toxic Granulation 1+; Toxic Vacuolation Few
[2019-08-12 10:07] LABS: Large Platelets Few; Platelet Estimate Consistent w Auto
[2019-08-12] MEDS: IPRATROPIUM/ALBUTEROL SULFATE 3 ML AMPUL.NEB IH SCH ×4 (10:44→17:42)
[2019-08-12] MEDS: FAMOTIDINE 20 MG/2 ML INJ IV SCH (10:46)
[2019-08-12] MEDS: HEPARIN 5,000 UNIT/1 ML VIAL SUB-Q SCH (10:47)
[2019-08-12 12:18] VITALS: BP 131/78
--- NOTE | 2019-08-12 17:45 | Discharge Summary ---
Providers - Providers Date of Admission: 08/11/19 17:00 Date of discharge: 08/12/19 Attending physician: FLYNN LUCERO Primary care physician: [facility] [employer] Hospitalization Condition: Stable Hospital course: 29-year-old female with history of asthma admitted for asthma exacerbation and respiratory failure. Patient improved with the nebulizer treatments and IV antibiotics and IV Solu-Medrol. Patient also complains of left rib fractures which are old and she wants a ibuprofen for the left rib fractures. Discharge diagnosis #1 respiratory failure Patient to be discharged on oral Levaquin Medrol Dosepak/prednisone Dosepak/albuterol nebulizer solution/Singulair/NSH for the left rib fractures. #2 asthma exacerbation Oral Levaquin 750 daily for 7 days, prednisone Dosepak, Singulair, nebulizer solution with albuterol 4 times daily as needed Patient has nebulizer machine Disposition: DC- TO HOME OR SELFCARE Core Measure Documentation - Palliative Care Palliative Care/ Comfort Measures: Not Applicable - Core Measures Any of the following diagnoses?: none Exam - Constitutional Vitals: Temp Pulse Resp BP Pulse Ox 98.7 F 114 H 18 131/78 92 08/12/19 11:41 08/12/19 11:41 08/12/19 11:41 08/12/19 11:41 08/12/19 11:41 General appearance: Present: no acute distress, well-nourished - EENT Eyes: Present: PERRL ENT: hearing intact, clear oral mucosa - Neck Neck: Present: supple, normal ROM - Respiratory Respiratory effort: normal Respiratory: bilateral: CTA, rhonchi (Scattered) - Cardiovascular Heart rate: 78 Rhythm: regular Heart Sounds: Present: S1 & S2. Absent: rub, click - Extremities Extremities: pulses symmetrical, No edema Peripheral Pulses: within normal limits - Abdominal General gastrointestinal: Present: soft, non-tender, non-distended, normal bowel sounds Female genitourinary: Present: normal - Integumentary Integumentary: Present: clear, warm, dry - Musculoskeletal Musculoskeletal: gait normal, strength equal bilaterally - Psychiatric Psychiatric: appropriate mood/affect, intact judgment & insight - Neurologic Neurologic: CNII-XII intact, moves all extremities Plan Follow up with: PRIMARY CARE, [Primary Care Provider] - 3-5 Days
[2019-08-12] MEDS ORDERED: FAMOTIDINE 20 MG TAB PO SCH (22:00)
== END 2019-08-12 19:41 | disposition home or self-care (01) | DRG 871 ==
LOC: ED 15:09 → IMCU 17:00
PROVIDERS: ADMIT Internal Medicine; ATTEND Internal Medicine
PROC: 4A033R1 Measurement of Arterial Saturation, Peripheral, Percutaneous Approach (ICD-10-PCS; principal; 2019-08-11)
DX: A41.9 Sepsis, unspecified organism (principal); J96.01 Acute respiratory failure with hypoxia; J45.51 Severe persistent asthma with (acute) exacerbation; Z88.0 Allergy status to penicillin; Z88.6 Allergy status to analgesic agent; Z87.01 Personal history of pneumonia (recurrent); F41.8 Other specified anxiety disorders; Z87.891 Personal history of nicotine dependence; Z82.49 Family history of ischemic heart disease and other diseases of the circulatory system; Z87.81 Personal history of (healed) traumatic fracture; Z03.818 Encounter for observation for suspected exposure to other biological agents ruled out
CPT/HCPCS: 36415; 71045; 80053; 81001; 82140; 82728; 82803; 82947; 83615; 84145; 85007; 85025; 85379; 86140; 87040; 87086; 87116; 87641; 93005; 94640; 94644; G0378; J0456; J1100; J1170; J1644; J1885; J1956; J2930; J3475; J7030; J7050; U0003-CS